=== PATIENT | female | born 1970 | race Caucasian/White ===

== ENCOUNTER → 2017-09-12 | Outpatient (CLI) | payer BC ==
--- NOTE | 2017-09-12 11:16 | XR ---
EXAMINATION TYPE: XR shoulder complete RT DATE OF EXAM: 09/12/2017 COMPARISON: NONE HISTORY: Pain TECHNIQUE: Three views are submitted. FINDINGS: The osseous structures are intact. There is no acute fracture or dislocation. There is arthropathy o f the AC joint.. IMPRESSION: 1. No acute process.
== END | disposition home or self-care (01) ==
LOC: RADXRYALE 10:31
PROVIDERS: ATTEND Internal Medicine
DX: M25.511 Pain in right shoulder (principal)

== ENCOUNTER → 2022-09-28 | Outpatient (CLI) | payer OTHER ==
[2022-09-28 16:13] LABS: ALT 25 U/L (8-44); AST 21 U/L (13-35); Albumin 4.3 d/dL (3.8-4.9); Albumin/Globulin Ratio 1.87 Ratio (1.60-3.17); Alkaline Phosphatase 60 U/L (41-126); Blood Urea Nitrogen 11.2 mg/dL (9.0-27.0); Calcium 9.1 mg/dL (8.7-10.3); Carbon Dioxide 25.4 mmol/L (21.6-31.8); Chloride 103 mmol/L (96-109); Chol/HDL Ratio 3.34 Ratio; Globulin 2.3 d/dL (1.6-3.3); Glucose 165 mg/dL (70-110); LDL Cholesterol,Calculated 69.2 mg/dL (0.0-131.0); Potassium 4.4 mmol/L (3.5-5.5); Sodium 141 mmol/L (135-145); Total Bilirubin 0.3 mg/dL (0.3-1.2); Total Protein 6.6 d/dL (6.2-8.2)
[2022-09-28 17:38] LABS: Microalbumin Creatinine Ratio <11 mg/g Cr (0-30)
== END | disposition home or self-care (01) ==
LOC: LABWHC1 09:19
PROVIDERS: ATTEND Internal Medicine Endocrinology, Diabetes & Metabolism
DX: E11.65 Type 2 diabetes mellitus with hyperglycemia (principal)
CPT/HCPCS: 36415; 80053; 80061; 82043; 82570; 83036; 84443

== ENCOUNTER → 2023-01-04 | Outpatient (CLI) | payer OTHER ==
[2023-01-04 16:34] LABS: ALT 31 U/L (8-44); AST 22 U/L (13-35); Albumin 4.7 d/dL (3.8-4.9); Albumin/Globulin Ratio 1.88 Ratio (1.60-3.17); Alkaline Phosphatase 63 U/L (41-126); BUN/Creat Ratio 18.12 Ratio (12.00-20.00); Blood Urea Nitrogen 14.5 mg/dL (9.0-27.0); Calcium 9.9 mg/dL (8.7-10.3); Carbon Dioxide 26.1 mmol/L (21.6-31.8); Chloride 100 mmol/L (96-109); Chol/HDL Ratio 2.89 Ratio; Globulin 2.5 d/dL (1.6-3.3); Glucose 125 mg/dL (70-110); LDL Cholesterol,Calculated 64.2 mg/dL (0.0-131.0); Potassium 4.6 mmol/L (3.5-5.5); Sodium 138 mmol/L (135-145); Total Bilirubin 0.4 mg/dL (0.3-1.2); Total Protein 7.2 d/dL (6.2-8.2)
[2023-01-04 19:04] LABS: Microalbumin Creatinine Ratio <8 mg/g Cr (0-30)
== END | disposition home or self-care (01) ==
LOC: LABWHC1 10:06
PROVIDERS: ATTEND Internal Medicine Endocrinology, Diabetes & Metabolism
DX: E11.65 Type 2 diabetes mellitus with hyperglycemia (principal)
CPT/HCPCS: 36415; 80053; 80061; 82043; 82570; 83036; 84443

== ENCOUNTER → 2023-04-03 | Outpatient (CLI) | payer OTHER ==
[2023-04-03 15:39] LABS: ALT 51 U/L (8-44); AST 24 U/L (13-35); Albumin 4.1 g/dL (3.8-4.9); Albumin/Globulin Ratio 1.58 Ratio (1.60-3.17); Alkaline Phosphatase 87 U/L (41-126); Blood Urea Nitrogen 14.8 mg/dL (9.0-27.0); Calcium 9.6 mg/dL (8.7-10.3); Carbon Dioxide 26.3 mmol/L (21.6-31.8); Chloride 100 mmol/L (96-109); Chol/HDL Ratio 2.49 Ratio; Globulin 2.6 g/dL (1.6-3.3); Glucose 108 mg/dL (70-110); LDL Cholesterol,Calculated 49.8 mg/dL (0.0-131.0); Potassium 4.6 mmol/L (3.5-5.5); Sodium 138 mmol/L (135-145); Total Bilirubin 0.4 mg/dL (0.3-1.2); Total Protein 6.7 g/dL (6.2-8.2)
== END | disposition home or self-care (01) ==
LOC: LABWHC1 09:27
PROVIDERS: ATTEND Internal Medicine Endocrinology, Diabetes & Metabolism
DX: E11.65 Type 2 diabetes mellitus with hyperglycemia (principal)
CPT/HCPCS: 36415; 80053; 80061; 82043; 82570; 83036; 84443

== ENCOUNTER → 2023-04-12 | Outpatient (CLI) | payer OTHER ==
--- NOTE | 2023-04-12 11:46 | MR ---
EXAMINATION TYPE: MR lumbar spine wo con DATE OF EXAM: 04/12/2023 COMPARISON: NONE HISTORY: Low back pain into left leg TECHNIQUE: T1 and T2 axial and sagittal images of the lumbar spine are submitted. FINDINGS: There is no abnormal signal seen within the visualized spinal cord or paraspinal soft tissu es. Multiple vertebral body hemangioma including L1, T12, T10. There is nodularity left adrenal gland which is most likely is normal. Measures 1.4 cm. At T12/L1 there is a mild degenerative disc. Large vertebral body hemangioma. Minimal central disc bu lging but no focal herniation, canal stenosis, or foraminal impingement. Mild degenerative disc disea se. At L1-2 there is mild degenerative disc disease with no disc herniation or stenosis. No foraminal man agement. Mild hypertrophic changes of the facets. At L2-3 there is moderate facet arthropathy but no disc herniation, canal stenosis, or foraminal encr oachment At L3-4 there is a broad-based central disc bulging with mild effacement of thecal sac. Facet arthrop athy. Mild bilateral foraminal encroachment. There is an annular tear. At L4-5 there is a grade 1 anterolisthesis with degenerative changes of the spine. There is advanced facet arthropathy. Moderate bilateral foraminal encroachment. Hypertrophy of the ligamentum flavum wi th borderline to mild central stenosis. At L5-S1 there is no disc herniation or canal stenosis. No degenerative disc disease. There is advanc ed facet arthropathy. Neural foramina remain patent. IMPRESSION: 1. At L4-5 there is a grade 1 anterolisthesis with degenerative changes of the spine. There is advanc ed facet arthropathy. Moderate bilateral foraminal encroachment. Hypertrophy of the ligamentum flavum with borderline to mild central stenosis. 2. Broad-based disc bulging L3-L4 with annular tear and facet arthropathy facet arthropathy
== END | disposition home or self-care (01) ==
LOC: RADMRIMAIN 10:21
PROVIDERS: ATTEND Physical Medicine & Rehabilitation
DX: M48.061 Spinal stenosis, lumbar region without neurogenic claudication (principal); M24.28 Disorder of ligament, vertebrae; M43.17 Spondylolisthesis, lumbosacral region; M47.27 Other spondylosis with radiculopathy, lumbosacral region; M51.17 Intervertebral disc disorders with radiculopathy, lumbosacral region; M41.26 Other idiopathic scoliosis, lumbar region; M16.0 Bilateral primary osteoarthritis of hip
CPT/HCPCS: 72148

== ENCOUNTER → 2023-10-06 | Outpatient (CLI) | payer OTHER ==
[2023-10-06 15:35] LABS: ALT 23 U/L (8-44); AST 17 U/L (13-35); Albumin 4.3 g/dL (3.8-4.9); Albumin/Globulin Ratio 1.87 Ratio (1.60-3.17); Alkaline Phosphatase 62 U/L (41-126); BUN/Creat Ratio 15.75 Ratio (12.00-20.00); Blood Urea Nitrogen 12.6 mg/dL (9.0-27.0); Calcium 9.1 mg/dL (8.7-10.3); Carbon Dioxide 26.4 mmol/L (21.6-31.8); Chloride 99 mmol/L (96-109); Chol/HDL Ratio 2.29 Ratio; Globulin 2.3 g/dL (1.6-3.3); Glucose 155 mg/dL (70-110); LDL Cholesterol,Calculated 64.5 mg/dL (0.0-131.0); Potassium 4.4 mmol/L (3.5-5.5); Sodium 138 mmol/L (135-145); Total Bilirubin 0.4 mg/dL (0.3-1.2); Total Protein 6.6 g/dL (6.2-8.2)
== END | disposition home or self-care (01) ==
LOC: LABWHC1 09:52
PROVIDERS: ATTEND Internal Medicine Endocrinology, Diabetes & Metabolism
DX: E11.65 Type 2 diabetes mellitus with hyperglycemia (principal)
CPT/HCPCS: 36415; 80053; 80061; 82043; 82570; 83036; 84443

== ENCOUNTER → 2023-12-18 | Outpatient (CLI) | payer OTHER | END | disposition home or self-care (01) | LOC: LABWHC1 09:20 | PROVIDERS: ATTEND Orthopaedic Surgery | DX: M25.561 Pain in right knee (principal); M17.11 Unilateral primary osteoarthritis, right knee; M16.12 Unilateral primary osteoarthritis, left hip; M70.62 Trochanteric bursitis, left hip | CPT/HCPCS: 36415; 83036 ==

== ENCOUNTER → 2023-12-27 | Outpatient (CLI) | payer OTHER ==
--- NOTE | 2023-12-27 12:54 | CT ---
INDICATION: Patient age:Female; 53 years old; Reason for study: [facility] Protocol for right knee replacement, M25.561 PAIN IN RIGHT KNEE; PHH. COMPARISON: None TECHNIQUE: Thin section axial CT imaging of the entire right lower extremity was performed per [facility] protocol, wi thout the administration of IV contrast. Additional axial images of the bilateral hips and ankles wit h other knee were also obtained. FINDINGS: There is no evidence of acute fracture or dislocation. The hips are grossly unremarkable. Some spurring along the bilateral greater trochanters. There is tricompartmental joint space narrowing with marginal spurring of the right knee. Peripherall y calcified loose body measuring up to 1 cm identified at midline anterior to the tibial intercondyla r area. Prominent venous vasculature within the subcutaneous tissues of the right knee. The ankle is grossly unremarkable. Postsurgical changes of the right ankle with screws identified wit hin the distal right tibia. Mild degenerative change of the posterior right tibiotalar joint. The visualized soft tissues appear grossly unremarkable within the limits of unenhanced CT. Post surg ical changes from lower anterior abdominal wall hernia repair with mesh anchors identified. Uterus is surgically absent. IMPRESSION: [facility] protocol for right knee joint replacement. Advanced tricompartmental osteoarthritic changes of t he right knee with 1 cm loose body anterior midline to the tibial intercondylar area. [facility], , 12/27/2023 12:06 PM
== END | disposition home or self-care (01) ==
LOC: RADCTMAIN 10:58
PROVIDERS: ATTEND Orthopaedic Surgery
DX: M25.561 Pain in right knee

== ENCOUNTER → 2024-01-09 | Outpatient (CLI) | payer OTHER ==
[2024-01-09 23:52] LABS: Chol/HDL Ratio 2.39 Ratio; Glucose 137 mg/dL (70-110); LDL Cholesterol,Calculated 78.5 mg/dL (0.0-131.0)
[2024-01-09 23:53] LABS: ALT 21 U/L (8-44); AST 19 U/L (13-35); Albumin 4.3 g/dL (3.8-4.9); Albumin/Globulin Ratio 1.65 Ratio (1.60-3.17); Alkaline Phosphatase 67 U/L (41-126); Calcium 8.8 mg/dL (8.7-10.3); Carbon Dioxide 21.7 mmol/L (21.6-31.8); Chloride 99 mmol/L (96-109); Globulin 2.6 g/dL (1.6-3.3); Potassium 4.4 mmol/L (3.5-5.5); Sodium 135 mmol/L (135-145); Total Bilirubin 0.4 mg/dL (0.3-1.2); Total Protein 6.9 g/dL (6.2-8.2)
== END | disposition home or self-care (01) ==
LOC: LABWHC1 12:51
PROVIDERS: ATTEND Internal Medicine Endocrinology, Diabetes & Metabolism
DX: E11.65 Type 2 diabetes mellitus with hyperglycemia (principal)
CPT/HCPCS: 36415; 80053; 80061; 82043; 82570; 83036; 84443

== ENCOUNTER 2024-01-30 07:11 | Day surgery (SDC) | payer OTHER ==
[~2024-01-30 07:11] MED LIST: LIDOCAINE 1% (10MG/ML) FOR IV START INTRADERMA PRN; ONDANSETRON 4 MG/2 ML VIAL IVP PRN
[2024-01-30] MEDS: IV FLUID CONTINUATION 1,000 ML IV ONE (07:41)
[2024-01-30 07:43] VITALS: TEMP 98.1
[2024-01-30] MEDS: LACTATED RINGERS 1,000 ML IV SCH (07:52)
[2024-01-30 08:02] LABS: Glucose,Whole Blood 161 mg/dL (70-110)
[2024-01-30] MEDS ORDERED: PROPOFOL 10 MG/ML 20 ML VIAL IV ONE (08:09)
[2024-01-30] MEDS ORDERED: LIDOCAINE 1% INJ 10MG/ML (20 ML MDV) ONE (08:09)
--- NOTE | 2024-01-30 08:13 | P.GSHP ---
History of Present Illness H&P Date: 01/30/24 Chief Complaint: Colon cancer screening 53-year-old female here for colonoscopy. Last colonoscopy 5 to 10 years ago. She believes that was normal. No bowel complaints. No family history of colon cancer. Past Medical History Past Medical History: Asthma, Diabetes Mellitus, Hyperlipidemia, Hypertension, Osteoarthritis (OA), Sleep Apnea/CPAP/BIPAP Additional Past Medical History / Comment(s): precancerous sites to bilateral breasts. sees raven. losartan protective. does not wear a cpap. varicose veins. History of Any Multi-Drug Resistant Organisms: None Reported Past Surgical History: Appendectomy, Hysterectomy, Tonsillectomy Additional Past Surgical History / Comment(s): screws in ankle. CTR maverick."paola jar sized tumor" removed from her head "tar" (?sinus) Past Anesthesia/Blood Transfusion Reactions: Postoperative Nausea & Vomiting (PONV) Additional Past Anesthesia/Blood Transfusion Reaction / Comment(s): slow to wake up with a surgery. "quit breathing" her mom was in recovery telling her to breathe (?sleep apnea). CTR woke up during surgery. Smoking Status: Former smoker, Heavy tobacco smoker - Past Family History Mother Family Medical History: Cancer, Deep Vein Thrombosis (DVT) Additional Family Medical History / Comment(s): liver cancer Sister(s) Family Medical History: Cancer Additional Family Medical History / Comment(s): Breast/Bone Medications and Allergies Home Medications Medication Instructions Recorded Confirmed Type Albuterol Sulfate [Albuterol 1 puff INHALATION DIRECTED PRN 01/25/24 01/30/24 History Sulfate Hfa] Atorvastatin [Lipitor] 20 mg PO DAILY 01/25/24 01/30/24 History Budesonide/Formoterol Fumarate 2 puff INHALATION DIRECTED 01/25/24 01/30/24 History [Budesonide-Formoterol 80-4.5] Citalopram Hydrobromide 20 mg PO DAILY 01/25/24 01/30/24 History [Citalopram HBr] Cyclobenzaprine [Flexeril] 10 mg PO HS PRN 01/25/24 01/30/24 History Glimepiride 1 mg PO DAILY 01/25/24 01/30/24 History Ibuprofen [Motrin] 800 mg PO DIRECTED PRN 01/25/24 01/30/24 History Losartan [Cozaar] 25 mg PO DAILY 01/25/24 01/30/24 History Meloxicam 7.5 mg PO DAILY 01/25/24 01/30/24 History Unk Iron Otc 1 tab PO DAILY 01/25/24 01/30/24 History Unk Ozempic Samples 2 mg INJ WEEKLY 01/25/24 01/30/24 History sitaGLIPtin [Januvia] 100 mg PO DAILY 01/25/24 01/30/24 History traMADol HCL 50 mg PO DIRECTED PRN 01/25/24 01/30/24 History Allergies Allergy/AdvReac Type Severity Reaction Status Date / Time ciprofloxacin [From Cipro] Allergy Rash/Hives Verified 01/30/24 07:37 Sulfa (Sulfonamide Allergy Anaphylaxis Verified 01/30/24 07:37 Antibiotics) poinsettia Allergy bladder Uncoded 01/30/24 07:37 and kidney infection Surgical - Exam Vital Signs Temp Pulse Resp BP Pulse Ox 98.1 F 76 18 116/64 95 01/30/24 07:37 01/30/24 07:37 01/30/24 07:37 01/30/24 07:37 01/30/24 07:37 Physical exam: General: Well-developed, well-nourished HEENT: Normocephalic, sclerae nonicteric Abdomen: Nontender, nondistended Extremities: No edema Neuro: Alert and oriented Results - Labs Abnormal Lab Results - Last 24 Hours (Table) 01/30/24 Range/Units 07:48 POC Glucose (mg/dL) 161 H (70-110) mg/dL Assessment and Plan (1) Colon cancer screening Narrative/Plan: Will proceed with colonoscopy at this time. Current Visit: Yes Status: Acute Code(s): Z12.11 - ENCOUNTER FOR SCREENING FOR MALIGNANT NEOPLASM OF COLON SNOMED Code(s): 413271026
--- NOTE | 2024-01-30 08:24 | P.PCN ---
Date of Procedure: 01/30/24 Procedure(s) Performed: PREOPERATIVE DIAGNOSIS: Colon cancer screening POSTOPERATIVE DIAGNOSIS: Small rectal polyp PROCEDURE: Colonoscopy with snare polypectomy ANESTHESIA: MAC SURGEON: Missael Gandhi M.D. SPECIMENS: rectal polyp ENDOSCOPIC PROCEDURE: The patient was placed on the endoscopy table in the left decubitus position. The Olympus colonoscope was inserted into the anus and passed under direct visualization to the base of the cecum. The appendiceal orifice was visualized. From that point the scope was slowly withdrawn inspecting all surfaces carefully. There were no neoplastic inflammatory or polypoid lesions throughout the cecum, ascending, transverse, descending, and sigmoid colon. In the rectum a small polyp was seen and removed using the snare with cautery technique. There was no visible diverticulosis. Digital rectal examination was normal. The patient was taken to the recovery room in stable condition per anesthesia guidelines. RECOMMENDATIONS: Await biopsy results. Will contact patient with the timing of the next colonoscopy.
[2024-01-30 08:49] VITALS: PULSE 69
[2024-01-30 09:17] VITALS: BP 113/68; RESP 18
== END 2024-01-30 09:21 | disposition home or self-care (01) ==
LOC: ORWHC2ENDO 07:11
PROVIDERS: ATTEND Surgery
DX: Z12.11 Encounter for screening for malignant neoplasm of colon (principal); K62.1 Rectal polyp; J45.909 Unspecified asthma, uncomplicated; E11.9 Type 2 diabetes mellitus without complications; M19.90 Unspecified osteoarthritis, unspecified site; E78.5 Hyperlipidemia, unspecified; I10 Essential (primary) hypertension; G47.33 Obstructive sleep apnea (adult) (pediatric); Z90.49 Acquired absence of other specified parts of digestive tract; Z90.710 Acquired absence of both cervix and uterus; Z87.891 Personal history of nicotine dependence; Z80.0 Family history of malignant neoplasm of digestive organs; Z79.1 Long term (current) use of non-steroidal anti-inflammatories (NSAID); Z79.84 Long term (current) use of oral hypoglycemic drugs; Z79.02 Long term (current) use of antithrombotics/antiplatelets; Z88.1 Allergy status to other antibiotic agents; Z88.2 Allergy status to sulfonamides
CPT/HCPCS: 45385; 88305

== ENCOUNTER → 2024-02-19 | Outpatient (CLI) | payer OTHER ==
--- NOTE | 2024-02-19 08:50 | CT ---
EXAMINATION TYPE: CT right knee - [facility] Protocol DATE OF EXAM: 02/19/2024 COMPARISON: NONE CLINICAL INDICATION: Female, 53 years old with history of M25.561 pain R knee; right knee pain TECHNIQUE: CT of the right knee performed according to [facility] protocol. CT DLP: 878 mGycm COMPARISON- 12/27/2023 FINDINGS: There is no evidence of acute fracture or dislocation. Moderate hypertrophic bilateral hip arthropathy correlate for femoral acetabular impingement. Sclerotic density in the left pubic ramus l ikely bone island but too small to characterize.. Some spurring along the bilateral greater trochante rs. There is tricompartmental joint space narrowing with marginal spurring of the right knee. Peripherall y calcified loose body measuring up to 1 cm identified at midline anterior to the tibial intercondyla r area. Prominent venous vasculature within the subcutaneous tissues of the right knee. This trace am ount of fluid in the suprapatellar bursa. There is a 1 cm soft tissue nodule in popliteal posterior s oft tissues which may represent a small popliteal fossa cyst or lymph node. Subcutaneous varices note d. Postsurgical changes of the right ankle with screws identified within the distal right tibia. Mild de generative change of the posterior right tibiotalar joint. The visualized soft tissues appear grossly unremarkable within the limits of unenhanced CT. Post surgical changes from lower anterior abdominal wall hernia repair with mesh anchors identified. Uterus is surgically absent. IMPRESSION: [facility] protocol for right knee joint replacement. Severe osteoarthritis medial compartment of the right knee with 1 cm loose body anterior midline to the tibial intercondylar area. [facility], , 02/19/2024 8:47 AM
== END | disposition home or self-care (01) ==
LOC: RADCTMAIN 07:34
PROVIDERS: ATTEND Orthopaedic Surgery
DX: M17.12 Unilateral primary osteoarthritis, left knee (principal); Z96.651 Presence of right artificial knee joint; M23.42 Loose body in knee, left knee

== ENCOUNTER → 2024-04-04 | Outpatient (CLI) | payer OTHER ==
[2024-04-04 16:18] LABS: Prothrombin Time 11.1 sec (10.0-12.5)
[2024-04-04 19:32] LABS: HCT 39.9 % (37.2-46.3); HGB 12.2 g/dL (12.0-15.0); MCH 25.5 pg (27.0-32.0); MCHC 30.6 g/dL (32.0-37.0); MCV 83.3 FL (80.0-97.0); Mean Platelet Volume 12.2 FL (9.5-12.2); NRBC Per 100 WBC 0 X 10*3/uL (0.00-0.01); Platelet Count 321 X 10*3/uL (140-440); RBC 4.79 X 10*6/uL (4.10-5.20); RDW 14.6 % (11.5-14.5)
[2024-04-05 04:21] LABS: Glucose 113 mg/dL (70-110)
[2024-04-05 04:22] LABS: ALT 17 U/L (8-44); AST 17 U/L (13-35); Albumin 4.2 g/dL (3.8-4.9); Albumin/Globulin Ratio 1.68 Ratio (1.60-3.17); Alkaline Phosphatase 67 U/L (41-126); Calcium 8.9 mg/dL (8.7-10.3); Carbon Dioxide 24.5 mmol/L (21.6-31.8); Chloride 100 mmol/L (96-109); Globulin 2.5 g/dL (1.6-3.3); Potassium 3.9 mmol/L (3.5-5.5); Sodium 136 mmol/L (135-145); Total Bilirubin 0.3 mg/dL (0.3-1.2); Total Protein 6.7 g/dL (6.2-8.2)
== END | disposition home or self-care (01) ==
LOC: LABPAT 15:14
PROVIDERS: ATTEND Orthopaedic Surgery
DX: Z01.812 Encounter for preprocedural laboratory examination (principal); M17.11 Unilateral primary osteoarthritis, right knee; E11.9 Type 2 diabetes mellitus without complications; Z22.322 Carrier or suspected carrier of Methicillin resistant Staphylococcus aureus
CPT/HCPCS: 80053; 83036; 85027; 85610; 85730; 87070

== ENCOUNTER 2024-04-24 13:31 | Day surgery (SDC) | payer OTHER ==
[~2024-04-24 13:31] MED LIST changes: +TRANEXAMIC 1,000 MG/100ML-NACL 1,000 MG in SALINE 1 100ML.BAG IV PRN; +TRANEXAMIC 1,000 MG/100ML-NACL 1,000 MG in SALINE 1 100ML.BAG IVPB PRN
[2024-04-24] MEDS: IV FLUID CONTINUATION 1,000 ML IV ONE ×2 (13:40→16:17)
[2024-04-24 14:11] LABS: Glucose,Whole Blood 108 mg/dL (70-110)
[2024-04-24] MEDS: LACTATED RINGERS 1,000 ML IV SCH (14:21)
[2024-04-24] MEDS: DOCUSATE 100 MG CAP PO PRN (14:23)
[2024-04-24] MEDS: oxyCODONE ER 10 MG TAB.ER.12H PO PRN (14:23)
[2024-04-24] MEDS: ACETAMINOPHEN TAB 500 MG TAB PO PRN (14:23)
[2024-04-24] MEDS: KETOROLAC 15 MG/ML 1 ML VIAL IVP PRN (14:25)
[2024-04-24] MEDS: DEXAMETHASONE SOD PHOSPHATE 10 MG/ML 1 ML VIAL IV PRN (14:25)
[2024-04-24] MEDS: ONDANSETRON 4 MG/2 ML VIAL IVP ONE (14:25)
[2024-04-24] MEDS: FAMOTIDINE 20 MG/2 ML VIAL IVP PRN (14:26)
[2024-04-24] MEDS: MIDAZOLAM 2 MG/2 ML VIAL IV PRN (14:56)
[2024-04-24] MEDS: fentaNYL (PF) 50 MCG/ML 2 ML AMP IV PRN (14:57)
[2024-04-24] MEDS: SCOPOLAMINE 1 MG/72 HR PATCH TRANSDERM STA (15:09)
[2024-04-24] MEDS ORDERED: WATER FOR INJECTION, STERILE 10 ML VIAL IV ONE (15:28)
[2024-04-24] MEDS ORDERED: ROCURONIUM 10 MG/ML (5 ML VIAL) IV ONE (15:28)
[2024-04-24] MEDS ORDERED: PROPOFOL 10 MG/ML 20 ML VIAL IV ONE (15:28)
[2024-04-24] MEDS ORDERED: SUCCINYLCHOLINE CHLORIDE 200 MG/10 ML VIAL IV ONE (15:28)
[2024-04-24] MEDS ORDERED: LIDOCAINE 1% INJ 10MG/ML (20 ML MDV) ONE (15:28)
[2024-04-24] MEDS ORDERED: ePHEDrine 50 MG/ML 1 ML VIAL ONE (15:28)
[2024-04-24] MEDS ORDERED: NEOSTIGMINE 1 MG/ML 10 ML VIAL ONE (15:28)
[2024-04-24] MEDS ORDERED: SODIUM CHLORIDE 0.9% (PF) 10 ML VIAL ONE (15:28)
[2024-04-24] MEDS ORDERED: DEXAMETHASONE SOD PHOSPHATE 4 MG/ML 1 ML VIAL ONE (15:28)
[2024-04-24] MEDS ORDERED: TRANEXAMIC 1,000 MG/100ML-NACL PREMIX BAG ONE (15:28)
[2024-04-24] MEDS ORDERED: PHENYLEPHRINE 10 MG/ML VIAL ONE (15:28)
[2024-04-24] MEDS ORDERED: fentaNYL (PF) 50 MCG/ML 2 ML AMP ONE (15:28)
[2024-04-24] MEDS ORDERED: GLYCOPYRROLATE 0.2 MG/ML 2 ML VIAL ONE (15:28)
[2024-04-24] MEDS ORDERED: ROPIVACAINE 5 MG/ML 30 ML VIAL ONE (15:28)
[2024-04-24] MEDS ORDERED: MIDAZOLAM 2 MG/2 ML VIAL ONE (15:28)
--- NOTE | 2024-04-24 15:43 | P.ANPRN ---
Procedure Note - Anesthesia - Nerve Block Performed Right Adductor Canal Single Time Out Performed: Yes Date of Procedure: 04/24/24 Procedure Start Time: 14:55 Procedure Stop Time: 15:02 Location of Patient: PreOp Indication: Acute Post-Operative Pain, Requested by Surgeon Sedation Type: Sedate with meaningful contact maintained Preparation: Sterile Prep Position: Supine Needle Types: Pajunk Needle Gauge: 21 Ultrasound used to visualize needle placement: Yes Ultrasound used to observe medication spread: Yes Injectate: 0.5% Ropivacaine (see comment for volume) (20 mL +10 mL of normal saline +4 mg dexamethasone) Blood Aspirated: No Pain Paresthesia on Injection Noted: No Resistance on Injection: Normal Image Stored and Saved: Yes Events: Uneventful and Well Tolerated
--- NOTE | 2024-04-24 15:44 | P.ANPRN ---
Procedure Note - Anesthesia - Nerve Block Performed Right Shaneck Single Time Out Performed: Yes Date of Procedure: 04/24/24 Procedure Start Time: 15:03 Procedure Stop Time: 15:07 Location of Patient: PreOp Indication: Acute Post-Operative Pain, Requested by Surgeon Sedation Type: Sedate with meaningful contact maintained Preparation: Sterile Prep Position: Left Lateral Needle Types: Pajunk Needle Gauge: 21 Ultrasound used to visualize needle placement: Yes Ultrasound used to observe medication spread: Yes Injectate: 0.5% Ropivacaine (see comment for volume) (20 mL +10 mL of normal saline +4 mg dexamethasone) Blood Aspirated: No Pain Paresthesia on Injection Noted: No Image Stored and Saved: Yes Events: Uneventful and Well Tolerated
[2024-04-24] MEDS: ROPIVACAINE/EPI/CLONIDINE/KET 50 ML SYRINGE MISCELLANE PRN (16:01)
[2024-04-24] MEDS ORDERED: HYDROmorphone 0.5 MG/0.5 ML SYRINGE IVP PRN (17:23)
[2024-04-24] MEDS ORDERED: NA PHOS,M-B/NA PHOS,DI-BA 133 ML ENEMA RECTAL PRN (17:23)
[2024-04-24] MEDS ORDERED: bisacodyL 10 MG SUPP RECTAL PRN (17:23)
[2024-04-24] MEDS ORDERED: HYDROmorphone 1 MG/ML 1 ML SYRINGE IVP PRN (17:23)
[2024-04-24] MEDS ORDERED: ONDANSETRON 4 MG/2 ML VIAL IVP PRN (17:23)
[2024-04-24] MEDS ORDERED: NALOXONE 0.4 MG/ML 1 ML VIAL IV PRN (17:23)
[2024-04-24] MEDS ORDERED: MAGNESIUM HYDROXIDE 2,400 MG/30 ML CUP PO PRN (17:23)
--- NOTE | 2024-04-24 17:23 | P.OP ---
Date of Procedure: 04/24/24 Preoperative Diagnosis: 1. Severe right knee osteoarthritis 2. BMI 39 3. Diabetes type 2 Postoperative Diagnosis: Same Procedure(s) Performed: 1. Right total knee arthroplasty 2. Computer assisted musculoskeletal navigation using CT/MRI images Implants: 1. [employer] CR Femur Size #4 2. [place] [employer] Chambers Tibial Base Size #3 3. [place] [employer] CS poly Size #3, 9-mm 4. [employer] all poly patella, Size #29 Anesthesia: GENET, regional Surgeon: Julien Mendoza Magnetometer Operator #1: Blayne Reina Estimated Blood Loss (ml): 100 IV fluids (ml): 800 Pathology: none sent Condition: stable Disposition: PACU Indications for Procedure: I met with the patient preoperatively in the office setting and discussed treatment of their symptomatic knee arthritis. They failed a long course of nonsurgical treatment and elected to proceed with an elective total knee replacement. I discussed the potential risks and complications at length and gave them ample time to ask questions. Risks discussed included: risks from anesthesia, superficial site surgical infection, acute and/or chronic periprosthetic joint infection, delayed wound healing, drainage, wound necrosis, instability, stiffness, stiffness requiring manipulation and/or revision surgery, damage to local blood vessels or nerves, aseptic loosening of the implants, extensor mechanism issues including disruption, patellar maltracking, avascular necrosis etc., continued or worsened knee pain, generalized dissatisfaction with surgical outcome, need for revision surgery, an inability to regain preinjury level of function, DVT, PE, other medical complications, and possibly loss of life or limb. The patient voiced their understanding that while these are the most common complications other less common complications ar e possible. They provided both their verbal and written consent to go forward with surgery. Operative Findings: Severe tricompartmental osteoarthritis Description of Procedure: The patient was identified in preoperative holding and the correct operative extremity was verified and marked with a marker. I reviewed the consent form with the patient at length. All of their questions were answered. The patient was given a block by anesthesia. They were then brought back to the operating room. They were transferred onto the operating room table where a general anesthetic, preoperative antibiotics, and tranexamic acid were administered by anesthesia. A tourniquet was applied to the proximal aspect of the operative extremity. The contralateral extremity was padded under the heel and secured to the operating room table with a nonsterile blue towel and tape. The ipsilateral arm was carefully draped across the patient's chest and secured with a pillow and foam. A post was applied over the lateral aspect of the ipsilateral thigh and a bolster was placed under the ipsilateral foot. I verified that the operative extremity was stable and the knee was flexed to 90. The operative extremity was then placed in a leg hinojosa, nonsterile drapes were applied, and the extremity was prepped and draped sterilely in the standard sterile fashion. Prior to starting surgery timeout was performed identifying the correct patient, operative extremity, and procedure. The leg was then elevated, exsanguinated with an Esmarch bandage, and the tourniquet was inflated. An anterior midline incision was made sharply with a scalpel. Once I had dissected deep to the superficial fascial layer medial and lateral flaps were elevated. A medial parapatellar arthrotomy was created. Upon opening the knee joint there were diffuse arthritic changes in all 3 compartments. The anterior horn of the medial meniscus were sharply released and a medial release was performed around the posterior medial corner of the knee to facilitate retractor placement. The fat pad was excised with electrocautery. The patella was found to be severely arthritic and a provisional cut was made with a sagittal saw to facilitate mobilization of the extensor mechanism during the procedure. Remnants of the ACL and PCL were then excised from the notch. 4 mm pins were then placed within the incision in the medial distal femur and proximal tibia. Arrays were applied to the pins and I verified they were completely tightened. The knee was then registered with the DJZ robot and manipulations in implant position were made to balance the knee and opitmize implant position. Using the George robotic saw all cuts were made in accordance with our plan. After all bony fragments had been removed the cuts were verified with the planar probe. The tibia was then subluxed forward and sized. The knee was brought into flexion and a lamina knifeman was placed to allow removal of the meniscal remnants both medially and laterally as well as posterior osteophytes. Local anesthetic was then infiltrated around the joint capsule. Trial implants were then placed within the knee. Range of motion and collateral ligament tension was then evaluated. Adjustments in implant size and position were then made accordingly. Once the knee was felt to be appropriately balanced the George pins were removed. The patella was then recut, sized, and punched. A trial patellar button was then placed. With the trial components in place, the patella tracked midline. The femur was then drilled and the trial component removed. The trial tibial component was then appropriately rotated, pinned, and prepared for the keel. All trial components were then removed from the knee. The knee was thoroughly irrigated with pulsatile lavage. Cement was prepared via vacuum mixing in a bowl on the back table. I then hand pressurized cement into the femur and tibia and placed the implants beginning with the tibial base tray and poly liner, femoral component, and finally the patellar button. All extruded cement was removed including from the pin sites. Once the cement had hardened the knee was evaluated one final time with the final polyethylene liner in place. The knee had full extension and flexion and felt stable to varus and valgus stress throughout the arc of motion. The tourniquet was released and with the tourniquet down the patella tracked midline. All bleeders were controlled with electrocautery. The knee was then soaked for 3 minutes with a dilute Betadine s oak. The knee was thoroughly irrigated using 3 L of sterile saline and pulsatile lavage. A deep drain was placed. The extensor mechanism was then reapproximated using pop off Vicryl sutures followed by a running barbed suture. The knee was then closed in layers with a 0 strata fix for the deep fascial layer, 2-0 strata fix for the superficial subcutaneous layer and Monocryl and Steri-Strips for the skin. A sterile dressing and drain sponge were applied. I verified that all instrument, sponge, and sharp counts were correct. The patient was then transferred off the operating room table, extubated, and brought to recovery having tolerated the procedure well. Blayne Reina PA-C was required as a skilled statistical assistant due to the complexity of surgery for patient positioning, draping, exposure, retraction, closure of wound and application of dressing. PLAN: The patient can weight-bear as tolerated on the operative extremity. DVT prophylaxis with aspirin 81 mg twice a day based on preoperative risk stratification. Follow-up in the office in 2 weeks for wound check and x-rays of the knee including an AP and lateral.
[2024-04-24 17:49] LABS: Glucose,Whole Blood 179 mg/dL (70-110)
[2024-04-24] MEDS: HYDROmorphone 0.5 MG/0.5 ML SYRINGE IVP PRN (17:53)
--- NOTE | 2024-04-24 19:12 | XR ---
EXAMINATION TYPE: XR knee limited RT DATE OF EXAM: 04/24/2024 6:53 PM COMPARISON: None CLINICAL INDICATION: Female, 53 years old with history of Evaluation for Postop abnormality and align ment; PHH, pain TECHNIQUE: XR knee limited RT XX views submitted. FINDINGS: Status post total knee arthroplasty changes with hardware in appropriate alignment and in tact. No evidence of fracture. Subcutaneous lucencies and lucencies within the joint consistent with surgical changes. IMPRESSION: Status post total knee arthroplasty changes with hardware intact and appropriate alignment. No fractu res identified. [facility], , 04/24/2024 7:09 PM
[2024-04-24] MEDS: DEXAMETHASONE SOD PHOSPHATE 4 MG/ML 1 ML VIAL IV ONE (21:28)
[2024-04-24] MEDS: SODIUM CHLORIDE 0.9% 1,000 ML IV SCH (21:31)
[2024-04-24] MEDS: SENNOSIDES-DOCUSATE SODIUM 1 EACH TAB PO SCH (21:39)
[2024-04-24] MEDS: ASPIRIN 81 MG PO SCH (21:39)
[2024-04-24] MEDS: HYDROcodone/APAP 5-325MG 1 EACH TAB PO PRN (22:06)
[2024-04-25] MEDS: HYDROmorphone 0.5 MG/0.5 ML SYRINGE IVP PRN (00:20)
[2024-04-25 06:13] LABS: Glucose,Whole Blood 148 mg/dL (70-110)
[2024-04-25] MEDS: HYDROcodone/APAP 10-325MG 1 EACH TAB PO PRN (07:56)
[2024-04-25] MEDS: MULTIVITAMINS, THERA 1 EACH TAB PO SCH (07:56)
[2024-04-25 08:28] LABS: Basophils # (A) 0.02 X 10*3/uL (0.00-0.10); Basophils % (A) 0.1 %; Eosinophils # (A) 0 X 10*3/uL (0.04-0.35); Eosinophils % (A) 0 %; HCT 35.1 % (37.2-46.3); HGB 10.9 g/dL (12.0-15.0); Lymphocytes # (A) 1.04 X 10*3/uL (0.90-5.00); Lymphocytes % (A) 6.4 %; MCH 26.4 pg (27.0-32.0); MCHC 31.1 g/dL (32.0-37.0); Mean Platelet Volume 12.3 FL (9.5-12.2); Monocytes # (A) 0.67 X 10*3/uL (0.20-1.00); Monocytes % (A) 4.1 %; NRBC Per 100 WBC 0 X 10*3/uL (0.00-0.01); Neutrophils # (A) 14.54 X 10*3/uL (1.80-7.70); Neutrophils % (A) 88.8 %; Platelet Count 248 X 10*3/uL (140-440); RBC 4.13 X 10*6/uL (4.10-5.20); RDW 14.9 % (11.5-14.5); WBC 16.36 X 10*3/uL (4.50-10.00)
[2024-04-25 08:45] VITALS: BP 96/56; PULSE 75; RESP 15; TEMP 97.6
--- NOTE | 2024-04-25 08:54 | P.DS ---
Providers Attending physician: Julien Mendoza Consults: 04/24/24 17:23 Consult Physician Routine Consulting Provider: Dionisio Isidro Consult Reason/Comments: post op medical management, diabetes Do you want consulting provider notified?: Yes Primary care physician: Leesa Smith [facility] Course: This is a 3-year-old patient, with past medical history of severe right knee osteoarthritis, who failed nonsurgical conservative management. On 04/24/2024 the patient presented to the [facility] pre-op department for scheduled katt total knee arthroplasty with Dr. Mendoza. The patient tolerated the procedure well. The patient was transferred to the orthopedic floor. The patient had no acute events over night. The patient's pain has been well-controlled. Patient was examined at bedside. Patient is resting comfortably in bed. No apparent distress. They are awake, alert and able to answer questions. On inspection the surgical knee dressing is intact, there is no drainage or strikethrough. The skin surrounding the dressing is free of erythema. There is mild swelling in the operative thigh. Operative femoral nerve function is intact. The operative calf is soft to compression. The patient is able to actively plantarflex and dorsiflex their operative ankle and toes. Their operative foot appears well perfused with capillary refill under 2 seconds. Start form completed and placed in the patient's chart. Walker order placed in patient's chart. Patient worked with physical therapy and it was determined they could discharge home. Plan to discharge home today. Plan follow up in two weeks in our office. Please see med rec for a list of accurate medications. Assessment: Stop day #1 status post right total knee arthroplasty for severe right knee osteoarthritis Right knee pain Plan - Discharge Summary Discharge Rx Participant: Yes New Discharge Prescriptions: New Aspirin 81 mg PO BID #60 tab HYDROcodone/APAP 5-325MG [Rhodes 5] 1 - 2 each PO Q6HR PRN #56 tab PRN Reason: Pain Omeprazole 20 mg PO DAILY #30 tab Sennosides-Docusate Sodium [Senokot-S] 1 tab PO BID PRN #60 tablet PRN Reason: Constipation Diclofenac Sodium [Voltaren] 75 mg PO BID #60 tab Ondansetron [Zofran] 4 mg PO Q6HR PRN #30 tab PRN Reason: Nausea No Action Cyclobenzaprine [Flexeril] 10 mg PO HS PRN PRN Reason: Pain Albuterol Sulfate [Albuterol Sulfate Hfa] 1 puff INHALATION DIRECTED PRN PRN Reason: Shortness Of Breath Ibuprofen [Motrin] 800 mg PO DIRECTED PRN PRN Reason: Pain Atorvastatin [Lipitor] 20 mg PO DAILY Budesonide/Formoterol Fumarate [Budesonide-Formoterol 80-4.5] 2 puff INHALATION DAILY sitaGLIPtin [Januvia] 100 mg PO DAILY Glimepiride 1 mg PO DAILY Meloxicam 7.5 mg PO DAILY Insulin Glargine,Hum.rec.anlog [Aramisroby Susancandelaria] 26 units SQ DAILY Aspirin [Adult Low Dose Aspirin EC] 81 mg PO DAILY ALPRAZolam [Xanax] 0.25 mg PO DAILY PRN PRN Reason: Anxiety traMADol HCL 50 mg PO DAILY PRN PRN Reason: Pain Citalopram Hydrobromide [Citalopram HBr] 20 mg PO DAILY Losartan [Cozaar] 25 mg PO DAILY Unk Iron Otc 1 tab PO DAILY Discharge Medication List Albuterol Sulfate [Albuterol Sulfate Hfa] 1 puff INHALATION DIRECTED PRN 01/25/24 [History] Atorvastatin [Lipitor] 20 mg PO DAILY 01/25/24 [History] Budesonide/Formoterol Fumarate [Budesonide-Formoterol 80-4.5] 2 puff INHALATION DAILY 01/25/24 [History] Citalopram Hydrobromide [Citalopram HBr] 20 mg PO DAILY 01/25/24 [History] Cyclobenzaprine [Flexeril] 10 mg PO HS PRN 01/25/24 [History] Glimepiride 1 mg PO DAILY 01/25/24 [History] Ibuprofen [Motrin] 800 mg PO DIRECTED PRN 01/25/24 [History] Losartan [Cozaar] 25 mg PO DAILY 01/25/24 [History] Meloxicam 7.5 mg PO DAILY 01/25/24 [History] Unk Iron Otc 1 tab PO DAILY 01/25/24 [History] sitaGLIPtin [Januvia] 100 mg PO DAILY 01/25/24 [History] traMADol HCL 50 mg PO DAILY PRN 01/25/24 [History] ALPRAZolam [Xanax] 0.25 mg PO DAILY PRN 04/19/24 [History] Aspirin [Adult Low Dose Aspirin EC] 81 mg PO DAILY 04/19/24 [History] Insulin Glargine,Hum.rec.anlog [Touesther Solostar] 26 units SQ DAILY 04/19/24 [History] Aspirin 81 mg PO BID #60 tab 04/25/24 [Rx] Diclofenac Sodium [Voltaren] 75 mg PO BID #60 tab 04/25/24 [Rx] HYDROcodone/APAP 5-325MG [Rhodes 5] 1 - 2 each PO Q6HR PRN #56 tab 04/25/24 [Rx] Omeprazole 20 mg PO DAILY #30 tab 04/25/24 [Rx] Ondansetron [Zofran] 4 mg PO Q6HR PRN #30 tab 04/25/24 [Rx] Sennosides-Docusate Sodium [Senokot-S] 1 tab PO BID PRN #60 tablet 04/25/24 [Rx] Follow up Appointment(s)/Referral(s): Julien Mendoza MD [Medical Doctor] - 2 Weeks Activity/Diet/Wound Care/Special Instructions: 1. Weight-bear as tolerated on your operative extremity unless instructed otherwise. Use a walker or other assistive device to ambulate. 2. Leave surgical dressing in place. If your dressing becomes saturated with blood, there is drainage, or the dressing becomes loose please contact the office. 3. It is okay to shower with your surgical dressing, but do not submerge in water (no hot tubs, bath's, swimming etc.) 4. Take your blood clot prevention medication as prescribed (aspirin, Eliquis, Xarelto, and Plavix are commonly prescribed medications for blood clot pr evention) 5. While taking Rhodes or Percocet for pain take a stool softener (Ex: Colace) and drink lots of water. 6. Keep all follow-up appointments as scheduled. You will usually be seen in 1-2 weeks following surgery. 7. Please contact the office with any questions or concerns [phone] Stop Motrin if taking diclofenac. Discharge Disposition: HOME WITH HOME HEALTH SERVICES
[2024-04-25] MEDS: hydrOXYzine pamoate 25 MG CAP PO PRN (10:27)
== END 2024-04-25 12:35 | disposition home health service (06) ==
LOC: OR 13:31 → 4SSUR 17:31 → OR 04-25 12:35
PROVIDERS: ATTEND Orthopaedic Surgery
DX: M17.11 Unilateral primary osteoarthritis, right knee (principal); E11.9 Type 2 diabetes mellitus without complications; G89.18 Other acute postprocedural pain; Z79.4 Long term (current) use of insulin; Z79.899 Other long term (current) drug therapy; Z68.39 Body mass index [BMI] 39.0-39.9, adult
CPT/HCPCS: 0055T; 27447; S2900; 64447; 64999; 85025

== ENCOUNTER → 2024-06-21 | Outpatient (CLI) | payer SELFPAY ==
[2024-06-21 11:22] LABS: Partial Thromboplastin Time 28.2 sec (22.0-30.0)
[2024-06-21 15:03] LABS: Basophils # (A) 0.12 X 10*3/uL (0.00-0.10); Basophils % (A) 0.9 %; Eosinophils # (A) 0.32 X 10*3/uL (0.04-0.35); Eosinophils % (A) 2.4 %; HCT 41.6 % (37.2-46.3); HGB 12.8 g/dL (12.0-15.0); Lymphocytes # (A) 2.49 X 10*3/uL (0.90-5.00); Lymphocytes % (A) 18.8 %; MCH 25.7 pg (27.0-32.0); MCHC 30.8 g/dL (32.0-37.0); MCV 83.5 FL (80.0-97.0); Mean Platelet Volume 12.6 FL (9.5-12.2); Monocytes # (A) 0.79 X 10*3/uL (0.20-1.00); NRBC Per 100 WBC 0 X 10*3/uL (0.00-0.01); Neutrophils # (A) 9.48 X 10*3/uL (1.80-7.70); Neutrophils % (A) 71.4 %; Platelet Count 304 X 10*3/uL (140-440); RBC 4.98 X 10*6/uL (4.10-5.20); RDW 14.9 % (11.5-14.5); WBC 13.27 X 10*3/uL (4.50-10.00)
[2024-06-21 15:33] LABS: ALT 19 U/L (8-44); AST 17 U/L (13-35); Albumin 4.4 g/dL (3.8-4.9); Albumin/Globulin Ratio 1.76 Ratio (1.60-3.17); Alkaline Phosphatase 68 U/L (41-126); Blood Urea Nitrogen 16.1 mg/dL (9.0-27.0); Calcium 9.5 mg/dL (8.7-10.3); Carbon Dioxide 25.5 mmol/L (21.6-31.8); Chloride 107 mmol/L (96-109); Globulin 2.5 g/dL (1.6-3.3); Glucose 138 mg/dL (70-110); Potassium 4.6 mmol/L (3.5-5.5); Sodium 145 mmol/L (135-145); Total Bilirubin 0.3 mg/dL (0.3-1.2); Total Protein 6.9 g/dL (6.2-8.2)
== END | disposition home or self-care (01) ==
LOC: LABPAT 10:27
PROVIDERS: ATTEND Orthopaedic Surgery
DX: Z01.812 Encounter for preprocedural laboratory examination (principal); Z22.322 Carrier or suspected carrier of Methicillin resistant Staphylococcus aureus; M17.12 Unilateral primary osteoarthritis, left knee; E11.9 Type 2 diabetes mellitus without complications
CPT/HCPCS: 80053; 83036; 85025; 85610; 85730; 87070; 93005

== ENCOUNTER → 2024-06-24 | Outpatient (CLI) | payer OTHER ==
--- NOTE | 2024-06-24 13:05 | CT ---
EXAMINATION TYPE: CT left knee - KATT Protocol DATE OF EXAM: 06/24/2024 12:55 PM COMPARISON: None. CLINICAL INDICATION: Female, 54 years old with history of M17.12 UNILATERAL PRIMARY OSTEOARTHRITIS, L EFT KNE; PHH, left knee katt protocol, pain, TECHNIQUE: Axial images were obtained of the bilateral hips, knee and bilateral ankles: CT left knee - KATT Protocol, Additional coronal and sagittal reformatted images and soft tissue and bone window were obtained for review of the bilateral hips, knee and bilateral ankles. Contrast used: mL of , (None if empty) Oral contrast used: (None if empty) CT DLP: 841 mGycm, Automated exposure control for dose reduction was used. FINDINGS: The visualized portion of the hips demonstrate mild osteoarthrosis changes with osteophyte formation of the acetabulum. No acute intrapelvic process. The bony structures of the pelvis are intact. The visualized knee demonstrates osteophyte formation of the tibial plateau, the patella and femoral condyles. There is joint space narrowing and subchondral sclerosis. No evidence of fracture. Small j oint effusion present. The visualized ankles demonstrates multifocal osteoarthrosis changes with osteophyte formation and mi ld joint space narrowing. No evidence of fractures. Fixation changes in the right distal tibia with s crews present and intact. Other: The uterus appears surgically absent. Postsurgical changes anterior abdominal IMPRESSION: Moderate osteoarthrosis changes of the knee. [facility], , 06/24/2024 1:03 PM
== END | disposition home or self-care (01) ==
LOC: RADCTMAIN 12:05
PROVIDERS: ATTEND Orthopaedic Surgery
DX: M17.12 Unilateral primary osteoarthritis, left knee (principal)

== ENCOUNTER 2024-07-12 08:25 | Day surgery (SDC) | payer OTHER ==
[2024-07-05 11:51] VITALS: BMI 38.4
[~2024-07-12 08:25] MED LIST changes: +DOCUSATE 100 MG CAP PO PRN; -LIDOCAINE 1% (10MG/ML) FOR IV START INTRADERMA PRN; -ONDANSETRON 4 MG/2 ML VIAL IVP PRN
[2024-07-12] MEDS: oxyCODONE ER 10 MG TAB.ER.12H PO PRN (09:39)
[2024-07-12] MEDS: LACTATED RINGERS 1,000 ML IV SCH (09:39)
[2024-07-12] MEDS: ACETAMINOPHEN TAB 500 MG TAB PO PRN (09:39)
[2024-07-12] MEDS: MIDAZOLAM 2 MG/2 ML VIAL IV PRN (09:42)
[2024-07-12] MEDS: fentaNYL (PF) 50 MCG/ML 2 ML AMP IVP ONE (09:42)
[2024-07-12] MEDS: DEXAMETHASONE SOD PHOSPHATE 10 MG/ML 1 ML VIAL IV PRN (09:51)
[2024-07-12] MEDS: ONDANSETRON 4 MG/2 ML VIAL IVP PRN (09:51)
[2024-07-12] MEDS: KETOROLAC 15 MG/ML 1 ML VIAL IVP PRN (09:51)
[2024-07-12] MEDS: FAMOTIDINE 20 MG/2 ML VIAL IVP PRN (09:52)
[2024-07-12 09:53] LABS: Glucose,Whole Blood 127 mg/dL (70-110)
[2024-07-12] MEDS: IV FLUID CONTINUATION 1,000 ML IV ONE ×2 (09:54→13:27)
[2024-07-12] MEDS: SCOPOLAMINE 1 MG/72 HR PATCH TRANSDERM STA (09:58)
[2024-07-12] MEDS ORDERED: DEXAMETHASONE SOD PHOSPHATE 4 MG/ML 1 ML VIAL ONE (10:18)
[2024-07-12] MEDS ORDERED: LIDOCAINE 1% INJ 10MG/ML (20 ML MDV) ONE (10:18)
[2024-07-12] MEDS ORDERED: ROCURONIUM 10 MG/ML (5 ML VIAL) IV ONE (10:18)
[2024-07-12] MEDS ORDERED: SODIUM CHLORIDE 0.9% (PF) 10 ML VIAL ONE (10:18)
[2024-07-12] MEDS ORDERED: PROPOFOL 10 MG/ML 20 ML VIAL IV ONE (10:18)
[2024-07-12] MEDS ORDERED: NEOSTIGMINE 1 MG/ML 10 ML VIAL ONE (10:18)
[2024-07-12] MEDS ORDERED: GLYCOPYRROLATE 0.2 MG/ML 2 ML VIAL ONE (10:18)
[2024-07-12] MEDS ORDERED: SUCCINYLCHOLINE CHLORIDE 200 MG/10 ML VIAL IV ONE (10:18)
[2024-07-12] MEDS ORDERED: ePHEDrine 50 MG/ML 1 ML VIAL ONE (10:18)
[2024-07-12] MEDS ORDERED: ROPIVACAINE 5 MG/ML 30 ML VIAL ONE (10:18)
[2024-07-12] MEDS ORDERED: TRANEXAMIC 1,000 MG/100ML-NACL PREMIX BAG ONE (10:18)
[2024-07-12] MEDS ORDERED: PHENYLEPHRINE-0.9% NACL SYG 1,000 MCG/10 ML SYRINGE ONE (10:18)
[2024-07-12] MEDS ORDERED: fentaNYL (PF) 50 MCG/ML 2 ML AMP ONE (10:18)
[2024-07-12] MEDS ORDERED: HYDROmorphone (PF) 1 MG/ML ONE (10:18)
[2024-07-12] MEDS ORDERED: WATER FOR INJECTION, STERILE 10 ML VIAL IV ONE (10:18)
[2024-07-12] MEDS: ceFAZolin 2 GM in DEXTROSE 5% IN WATER 50 ML IVPB PRN (10:23)
--- NOTE | 2024-07-12 10:42 | P.ANPRN ---
Procedure Note - Anesthesia - Nerve Block Performed Left Adductor Canal Single Time Out Performed: Yes (0941) Date of Procedure: 07/12/24 Procedure Start Time: :42 Procedure Stop Time: :45 Location of Patient: PreOp Indication: Acute Post-Operative Pain, Requested by Surgeon Specifically requested for management of pain by DrNess: Julien Mendoza Sedation Type: Sedate with meaningful contact maintained Preparation: Sterile Prep Position: Supine Catheter: None Needle Types: Pajunk Needle Gauge: 21 Ultrasound used to visualize needle placement: Yes Ultrasound used to observe medication spread: Yes Injectate: 0.5% Ropivacaine (see comment for volume) (15cc+10cc nacl pf +Decadron 4mg) Blood Aspirated: No Pain Paresthesia on Injection Noted: No Resistance on Injection: Normal Image Stored and Saved: Yes Events: Uneventful and Well Tolerated
--- NOTE | 2024-07-12 10:43 | P.ANPRN ---
Procedure Note - Anesthesia - Nerve Block Performed Left iPack Single Time Out Performed: Yes (0941) Date of Procedure: 07/12/24 Procedure Start Time: 09:46 Procedure Stop Time: 09:49 Location of Patient: PreOp Indication: Acute Post-Operative Pain, Requested by Surgeon Specifically requested for management of pain by DrNess: Julien Mendoza Sedation Type: Sedate with meaningful contact maintained Preparation: Sterile Prep Position: Supine Needle Gauge: 21 Ultrasound used to visualize needle placement: Yes Ultrasound used to observe medication spread: Yes Injectate: 0.5% Ropivacaine (see comment for volume) (15cc+10cc nacl pf +Decadron 4mg) Blood Aspirated: No Pain Paresthesia on Injection Noted: No Resistance on Injection: Normal Image Stored and Saved: Yes Events: Uneventful and Well Tolerated
[2024-07-12] MEDS: ROPIVACAINE/EPI/CLONIDINE/KET 50 ML SYRINGE MISCELLANE PRN (10:53)
[2024-07-12] MEDS: LACTATED RINGERS 1,000 ML IV ONE (11:12)
[2024-07-12] MEDS ORDERED: TEMAZEPAM 15 MG CAP PO PRN (12:06)
[2024-07-12] MEDS ORDERED: HYDROmorphone 0.5 MG/0.5 ML SYRINGE IVP PRN ×2 (12:06)
[2024-07-12] MEDS ORDERED: NALOXONE 0.4 MG/ML 1 ML VIAL IV PRN (12:06)
[2024-07-12] MEDS ORDERED: ONDANSETRON 4 MG/2 ML VIAL IVP PRN (12:06)
[2024-07-12] MEDS ORDERED: MAGNESIUM HYDROXIDE 2,400 MG/30 ML CUP PO PRN (12:06)
[2024-07-12] MEDS ORDERED: bisacodyL 10 MG SUPP RECTAL PRN (12:06)
[2024-07-12] MEDS ORDERED: NA PHOS,M-B/NA PHOS,DI-BA 133 ML ENEMA RECTAL PRN (12:06)
[2024-07-12] MEDS ORDERED: diazePAM 5 MG TAB PO PRN ×2 (12:06)
[2024-07-12] MEDS ORDERED: HYDROcodone/APAP 5-325MG 1 EACH TAB PO PRN (12:06)
--- NOTE | 2024-07-12 12:06 | P.OP ---
Date of Procedure: 07/12/24 Preoperative Diagnosis: 1. Severe left knee osteoarthritis 2. BMI 38.4 3. Previous right knee osteoarthritis status post total knee arthroplasty Postoperative Diagnosis: Same Procedure(s) Performed: 1. Left total knee arthroplasty 2. Computer assisted musculoskeletal navigation using CT/MRI images Implants: 1. [place] [employer] CR Femur Size #3 2. [place] [employer] Tibial Base Size #3 3. [employer] CS poly Size #3, 9-mm 4. [employer] Tri[employer]lon all poly patella, Size #29 Anesthesia: GETA, regional Surgeon: Julien Mendoza Welder/Fabricator #1: Blayne Reina Estimated Blood Loss (ml): 100 IV fluids (ml): 800 Pathology: none sent Condition: stable Disposition: PACU Indications for Procedure: The patient is a very pleasant 54-year-old female with a medical history significant for type 2 diabetes who previously underwent a right total knee replacement in March [id number]. She did well with this. She had incapacitating left knee pain. Her x-rays showed moderate joint space narrowing and an MRI showed full-thickness cartilage loss in the medial and patellofemoral joint spaces. Having previously undergone a total knee replacement on the contralateral side she requested proceeding with a left total knee replacement having failed over 6 months of nonsurgical treatment. I met with the patient preoperatively in the office setting and discussed treatment of their symptomatic knee arthritis. They failed a long course of nonsurgical treatment and elected to proceed with an elective total knee replacement. I discussed the potential risks and complications at length and gave them ample time to ask questions. Risks discussed included: risks from anesthesia, superficial site surgical infection, acute and/or chronic periprosthetic joint infection, delayed wound healing, drainage, wound necrosis, instability, stiffness, stiffness requiring manipulation and/or revision surgery, damage to local blood vessels or nerves, aseptic loosening of the implants, extensor mechanism issues including disruption, patellar maltracking, avascular necrosis etc., continued or worsened knee pain, generalized dissatisfaction with surgical outcome, need for revision surgery, an inability to regain preinjury level of function, DVT, PE, other medical complications, and possibly loss of life or limb. The patient voiced their understanding that while these are the most common complications other less common complications are possible. They provided both their verbal and written consent to go forward with surgery. Operative Findings: Severe full-thickness cartilage loss on the medial and patellofemoral compartments, partial thickness cartilage loss lateral compartment Description of Procedure: The patient was identified in preoperative holding and the correct operative extremity was verified and marked with a marker. I reviewed the consent form with the patient at length. All of their questions were answered. The patient was given a block by anesthesia. They were then brought back to the operating room. They were transferred onto the operating room table where a general anesthetic, preoperative antibiotics, and tranexamic acid were administered by anesthesia. A tourniquet was applied to the proximal aspect of the operative extremity. The contralateral extremity was padded under the heel and secured to the operating room table with a nonsterile blue towel and tape. The ipsilateral arm was carefully draped across the patient's chest and secured with a pillow and foam. A post was applied over the lateral aspect of the ipsilateral thigh and a bolster was placed under the ipsilateral foot. I verified that the operative extremity was stable and the knee was flexed to 90. The operative extremity was then placed in a leg hinojosa, nonsterile drapes were applied, and the extremity was prepped and draped sterilely in the standard sterile fashion. Prior to starting surgery timeout was performed identifying the correct patient, operative extremity, and procedure. The leg was then elevated, exsanguinated with an Esmarch bandage, and the tourniquet was inflated. An anterior midline incision was made sharply with a scalpel. Once I had dissected deep to the superficial fascial layer medial and lateral flaps were elevated. A medial parapatellar arthrotomy was created. Upon opening the knee joint there were diffuse arthritic changes in all 3 compartments. The anterior horn of the medial meniscus were sharply released and a medial release was performed around the posterior medial corner of the knee to facilitate retractor placement. The fat pad was excised with electrocautery. Remnants of the ACL and PCL were then excised from the notch. 4 mm pins were then placed within the incision in the medial distal femur and proximal tibia. Arrays were applied to the pins and I verified they were completely tightened. The knee was then registered with the [employer] robot and manipulations in implant position were made to balance the knee and opitmize implant position. Using the [employer] robotic saw all cuts were made in accordance with our plan. After all bony fragments had been removed the cuts were verified with the planar probe. The tibia was then subluxed forward and sized. The knee was brought into flexion and a lamina rail layer was placed to allow removal of the meniscal remnants both medially and laterally as well as posterior osteophytes. Local anesthetic was then infiltrated around the joint capsule. Trial implants were then placed within the knee. Range of motion and collateral ligament tension was then evaluated. Adjustments in implant size and position were then made accordingly. Once the knee was felt to be appropriately balanced the George pins were removed. The patella was then cut, sized, and punched. A trial patellar button was then placed. With the trial components in place, the patella tracked midline. The femur was then drilled and the trial component removed. The trial tibial component was then appropriately rotated, pinned, and prepared for the keel. All trial components were then removed from the knee. The knee was thoroughly irrigated with pulsatile lavage. Cement was prepared via vacuum mixing in a bowl on the back table. Once the cement had reached appropriate consistency, I hand pressurized cement into the tibia and gently impacted the tibial implant into place. Cement was carefully removed from around the tibial tray and the poly liner was tapped into placed, engaging the locking mechanism. The femur was then exposed and cement was hand pressurized into the cut surfaces. The femoral implant was gently tapped into place and cement was carefully removed. A wet lap sponge was used to wipe down the bearing surface of the femur and the knee was extended to further pressurize cement. With the knee extended, cement was pressurized into the cut surface of the patella and the patella button was placed and compressed with a clamp. All extruded cement was removed including from the pin sites. The knee was held in extension until the cement had fully hardened. Once the cement had hardened the knee was evaluated one final time with the final polyethylene liner in place. The knee had full extension and flexion and felt stable to varus and valgus stress throughout the arc of motion. The tourniquet was released and with the tourniquet down the patella tracked midline. All bleeders were controlled with electrocautery. The knee was then soaked for 3 minutes with a dilute Betadine soak. The knee was thoroughly irri gated using 3 L of sterile saline and pulsatile lavage. A deep drain was placed. The extensor mechanism was then reapproximated using pop off Vicryl sutures followed by a running barbed suture. The knee was then closed in layers with a 0 strata fix for the deep fascial layer, 2-0 strata fix for the superficial subcutaneous layer and Monocryl and Steri-Strips for the skin. A sterile dressing and drain sponge were applied. I verified that all instrument, sponge, and sharp counts were correct. The patient was then transferred off the operating room table, extubated, and brought to recovery having tolerated the procedure well. Blayne Reina PA-C was required as a skilled retail assistant manager due to the complexity of surgery for patient positioning, draping, exposure, retraction, closure of wound and application of dressing. PLAN: The patient can weight-bear as tolerated on the operative extremity. DVT prophylaxis with aspirin 81 mg twice a day based on preoperative risk stratification. Follow-up in the office in 2 weeks for wound check and x-rays of the knee including an AP and lateral.
[2024-07-12] MEDS: HYDROmorphone 0.5 MG/0.5 ML SYRINGE IVP PRN (13:02)
--- NOTE | 2024-07-12 13:06 | XR ---
EXAMINATION TYPE: XR knee limited LT DATE OF EXAM: 07/12/2024 12:54 PM COMPARISON: None CLINICAL INDICATION: Female, 54 years old with history of Evaluation for Postop abnormality and align ment; PHH, pain TECHNIQUE: 2 views FINDINGS: Placement of left total knee arthroplasty. Both distal femoral and proximal tibial components of the prosthesis are well seated without periprosthetic fracture. Alignment grossly anatomic. Anterior soft tissue swelling with soft tissue air as well as intra-articular air related to recent operation. IMPRESSION: Uncomplicated postoperative appearance left total knee arthroplasty. There may be some faint osseous debris within the suprapatellar pouch of the knee joint. [facility], Workstation: [facility], 07/12/2024 1:04 PM
[2024-07-12 13:40] LABS: Glucose,Whole Blood 215 mg/dL (70-110)
[2024-07-12] MEDS: INSULIN LISPRO (HumaLOG) 100 UNIT/ML 10 mL VL SQ ONE (13:58)
[2024-07-12] MEDS: SODIUM CHLORIDE 0.9% 1,000 ML IV SCH (14:44)
[2024-07-12] MEDS ORDERED: DEXTROSE 50% SYRINGE 50 ML IVP PRN ×2 (15:10)
[2024-07-12] MEDS ORDERED: ALBUTEROL NEBULIZED 2.5 MG/3 ML INHALATION PRN (15:10)
--- NOTE | 2024-07-12 15:12 | P.CONS ---
History of Present Illness - Reason for Consult Consult date: 07/12/24 Medical management - Chief Complaint Left knee arthroplasty - History of Present Illness Patient is a 54-year-old female with known history of diabetes type 2 insulin- dependent, hyperlipidemia, osteoarthritis, history of breast surgery, anxiety/depression and prior history of smoking was admitted to the hospital for 2 left knee arthroplasty. Patient is status post left total knee arthroplasty. Pain is controlled with epidural. No complaints of nausea or vomiting. No chest pain or shortness of breath. Patient has been afebrile. Blood sugar was 215 this morning. Blood pressure 99/63 pulse is 97 respiration 17 pulse ox 90% on room air. Laboratory data is not available at this time. Review of Systems Constitutional: Patient denies any fever or chills . No generalized weakness or weight loss. Abdomen: Patient denied nausea vomiting and diarrhea and abdominal pain. Cardiovascular: Patient denies any chest pain or short of breath no palpitations. Respiratory: patient denied any cough or sputum production. No shortness of breath Neurologic: Patient denied any numbness or tingling. no headache. Musculoskeletal: Patient denies any complaints of joint swelling or deformity. Skin: Negative Psychiatric: Negative Endocrine: No heat or cold intolerance. No recent weight gain. Genitourinary: No dysuria or hematuria. All other 14 point ROS negative except the above Past Medical History Past Medical History: Diabetes Mellitus, Hyperlipidemia, Osteoarthritis (OA) History of Any Multi-Drug Resistant Organisms: None Reported Past Surgical History: Appendectomy, Breast Surgery, Hernia Repair, Hysterectomy, Joint Replacement, Orthopedic Surgery, Tonsillectomy Additional Past Surgical History / Comment(s): ORIF RT ANKLE, RT TKA, COLONOSCOPY, BREAST LUMPECTOMY Past Anesthesia/Blood Transfusion Reactions: Postoperative Nausea & Vomiting (PONV) Past Psychological History: Anxiety, Depression Smoking Status: Former smoker Past Alcohol Use History: Rare Additional Past Alcohol Use History / Comment(s): QUIT SMOKING 30 YEAR [place] Past Drug Use History: None Reported - Past Family History Mother Family Medical History: Cancer, Deep Vein Thrombosis (DVT) Sister(s) Family Medical History: Cancer Medications and Allergies Home Medications Medication Instructions Recorded Confirmed Type Atorvastatin [Lipitor] 20 mg PO DAILY 01/25/24 07/12/24 History Budesonide/Formoterol Fumarate 2 puff INHALATION DAILY 01/25/24 07/12/24 History [Budesonide-Formoterol 80-4.5] Citalopram Hydrobromide 20 mg PO DAILY 01/25/24 07/12/24 History [Citalopram HBr] Glimepiride 1 mg PO DAILY 01/25/24 07/12/24 History Ibuprofen [Motrin] 800 mg PO DIRECTED PRN 01/25/24 07/12/24 History Meloxicam 7.5 mg PO DAILY 01/25/24 07/12/24 History sitaGLIPtin [Januvia] 100 mg PO DAILY 01/25/24 07/12/24 History traMADol HCL 50 mg PO DAILY PRN 01/25/24 07/12/24 History ALPRAZolam [Xanax] 0.25 mg PO DAILY PRN 04/19/24 07/12/24 History Aspirin [Adult Low Dose Aspirin EC] 81 mg PO DAILY 04/19/24 07/12/24 History Insulin Glargine,Hum.rec.anlog 27 units SQ DAILY 04/19/24 07/12/24 History [Elizabeth Gomez] Allergies Allergy/AdvReac Type Severity Reaction Status Date / Time ciprofloxacin [From Cipro] Allergy Rash/Hives Verified 07/12/24 09:02 Sulfa (Sulfonamide Allergy Anaphylaxis Verified 07/12/24 09:02 Antibiotics) poinsettia Allergy bladder Uncoded 07/12/24 09:02 and kidney infection Physical Exam Vitals: Vital Signs Temp Pulse Pulse Resp BP Pulse Ox 07/12/24 14:10 98.1 F 97 15 108/67 90 L 07/12/24 13:45 91 16 129/66 93 L 07/12/24 13:30 98 16 127/63 93 L 07/12/24 13:15 101 H 16 114/66 95 07/12/24 13:00 100 16 108/67 95 07/12/24 12:47 98 16 106/62 95 07/12/24 12:32 96.9 F L 99 16 140/65 98 07/12/24 09:57 68 16 108/54 98 07/12/24 09:05 95.5 F L 77 18 111/62 97 Intake and Output 07/12/24 07/12/24 07/12/24 06:59 14:59 22:59 Intake Total 2049 Output Total 100 Balance 1950 Intake: IV 2049 Output: Estimated Blood Loss 100 Other: Weight 108 kg PHYSICAL EXAMINATION: Patient is lying in the bed comfortably, no acute distress, awake alert and oriented.. HEENT: Normocephalic. Neck is supple. Pupils reactive. Nostrils clear. Oral cavity is moist. Neck reveals no JVD, carotid bruits, or thyromegaly. CHEST EXAMINATION: Trachea is central. Symmetrical expansion. Lung velez clear to auscultation and percussion. CARDIAC: Normal S1, S2 with no gallops. No murmurs ABDOMEN: Soft. Bowel sounds normal. No organomegaly. No abdominal bruits. Extremities: reveal no edema. No clubbing or cyanosis Neurologically awake, alert, oriented x3 with well-coordinated movements. No focal deficits noted Skin: No rash or skin lesions. Psychiatric: Coperative. Nonsuicidal Musculoskeletal: No joint swelling or deformity. Left knee surgical site bandaged. Results Labs: Abnormal Lab Results - Last 24 Hours (Table) 07/12/24 07/12/24 Range/Units 09:32 13:38 POC Glucose (mg/dL) 127 H 215 H (70-110) mg/dL Assessment and Plan Assessment: Status post left total knee arthroplasty postoperative day 0 Diabetes type 2 insulin-dependent with mild hyperglycemia COPD not in exacerbation Obesity with BMI 38.4 Osteoarthritis Hyperlipidemia Anxiety/depression GI and DVT prophylaxis Plan: Patient will be continued on pain management, bowel regimen and encourage incentive spirometry. Patient was started back on insulin glargine 27 units subcu daily along with insulin sliding scale. Continue with home medications. Follow-up CBC and BMP. Further recommendations based on the clinical course. Thank you kindly for your consult. Time with Patient: Greater than 30
[2024-07-12 16:43] LABS: Glucose,Whole Blood 184 mg/dL (70-110)
[2024-07-12] MEDS: INSULIN LISPRO (HumaLOG) 100 UNIT/ML 10 mL VL SQ SCH (17:01)
[2024-07-12] MEDS: ceFAZolin 2 GM in DEXTROSE 5% IN WATER 50 ML IVPB SCH (17:02)
[2024-07-12] MEDS: INSULIN GLARGINE (LANTUS) 100 UNIT/ML SYR SQ SCH (17:02)
[2024-07-12] MEDS: HYDROcodone/APAP 10-325MG 1 EACH TAB PO PRN (17:10)
[2024-07-12] MEDS: HYDROmorphone 2 MG/ML 1 ML SYRINGE IVP PRN (20:05)
[2024-07-12] MEDS: ASPIRIN 81 MG PO SCH (20:05)
[2024-07-12] MEDS: SENNOSIDES-DOCUSATE SODIUM 1 EACH TAB PO SCH (20:05)
[2024-07-12 20:27] LABS: Glucose,Whole Blood 236 mg/dL (70-110)
[2024-07-13 01:31] VITALS: PULSE 72
[2024-07-13 06:27] LABS: Glucose,Whole Blood 143 mg/dL (70-110)
[2024-07-13 07:27] VITALS: BP 103/62; RESP 20; TEMP 99.2
[2024-07-13] MEDS: ATORVASTATIN 20 MG TAB PO SCH (08:28)
[2024-07-13] MEDS: hydrOXYzine pamoate 25 MG CAP PO PRN (08:29)
[2024-07-13] MEDS: SYMBICORT 80-4.5 MCG INHALER INHALATION SCH (09:34)
[2024-07-13] MEDS: CITALOPRAM HYDROBROMIDE 20 MG TAB PO SCH (09:47)
[2024-07-13 10:05] LABS: Blood Urea Nitrogen 12.6 mg/dL (9.0-27.0); Calcium 8.6 mg/dL (8.7-10.3); Carbon Dioxide 22.6 mmol/L (21.6-31.8); Chloride 102 mmol/L (96-109); Glucose 163 mg/dL (70-110); Potassium 4.5 mmol/L (3.5-5.5); Sodium 137 mmol/L (135-145)
--- NOTE | 2024-07-13 10:13 | P.DS ---
Providers Expected date of discharge: 07/13/24 Attending physician: Julien Mendoza Consults: 07/12/24 12:06 Consult Physician Routine Consulting Provider: Leesa Smith Consult Reason/Comments: post op medical management Do you want consulting provider notified?: Yes 07/13/24 08:22 Consult Physician Routine Consulting Provider: Rhianna Bowden Consult Reason/Comments: Med management Do you want consulting provider notified?: Yes Primary care physician: Leesa Smith - Discharge Diagnosis(es) (1) Primary localized osteoarthritis of left knee Current Visit: Yes Status: Acute (2) Status post total left knee replacement Current Visit: Yes Status: Acute Hospital Course: This is a 54-year-old female who was last seen with complaint of continued left knee pain. The patient has a known history of degenerative arthritis of the left knee and presents to discuss surgical options. After discussion and consideration the patient elects to proceed with total left knee arthroplasty. The patient is seen preoperatively by her primary care physician and cleared for surgery. The patient is admitted to [facility] for total left knee arthroplasty. The procedures performed without complication or sequelae. He is doing well postoperatively. Vital signs are stable at discharge. Labs are stable at discharge. the patient is ambulating well with walker with minimal assistance. The patient is discharged to home on postop day # 1 pending medical clearance. Please see orders and refer to the med rec for accurate list of medications. Patient Condition at Discharge: Good Plan - Discharge Summary Discharge Rx Participant: No New Discharge Prescriptions: No Action Ibuprofen [Motrin] 800 mg PO DIRECTED PRN PRN Reason: Pain Atorvastatin [Lipitor] 20 mg PO DAILY Budesonide/Formoterol Fumarate [Budesonide-Formoterol 80-4.5] 2 puff INHALATION DAILY sitaGLIPtin [Januvia] 100 mg PO DAILY Glimepiride 1 mg PO DAILY Meloxicam 7.5 mg PO DAILY Insulin Glargine,Hum.rec.anlog [Elizabeth Gomez] 27 units SQ DAILY Aspirin [Adult Low Dose Aspirin EC] 81 mg PO DAILY ALPRAZolam [Xanax] 0.25 mg PO DAILY PRN PRN Reason: Anxiety traMADol HCL 50 mg PO DAILY PRN PRN Reason: Pain Citalopram Hydrobromide [Citalopram HBr] 20 mg PO DAILY Discharge Medication List Atorvastatin [Lipitor] 20 mg PO DAILY 01/25/24 [History] Budesonide/Formoterol Fumarate [Budesonide-Formoterol 80-4.5] 2 puff INHALATION DAILY 01/25/24 [History] Citalopram Hydrobromide [Citalopram HBr] 20 mg PO DAILY 01/25/24 [History] Glimepiride 1 mg PO DAILY 01/25/24 [History] Ibuprofen [Motrin] 800 mg PO DIRECTED PRN 01/25/24 [History] Meloxicam 7.5 mg PO DAILY 01/25/24 [History] sitaGLIPtin [Januvia] 100 mg PO DAILY 01/25/24 [History] traMADol HCL 50 mg PO DAILY PRN 01/25/24 [History] ALPRAZolam [Xanax] 0.25 mg PO DAILY PRN 04/19/24 [History] Aspirin [Adult Low Dose Aspirin EC] 81 mg PO DAILY 04/19/24 [History] Insulin Glargine,Hum.rec.anlog [[place]je[place] Solostar] 27 units SQ DAILY 04/19/24 [History] Follow up Appointment(s)/Referral(s): Julien Mendoza MD [Medical Doctor] - 2 Weeks Activity/Diet/Wound Care/Special Instructions: 1. Weight-bear as tolerated on your operative extremity unless instructed otherwise. Use a walker or other assistive device to ambulate. 2. Leave surgical dressing in place. If your dressing becomes saturated with blood, there is drainage, or the dressing becomes loose please contact the office. 3. It is okay to shower with your surgical dressing, but do not submerge in water (no hot tubs, bath's, swimming etc.) 4. Make sure to take her blood clot prevention medication as prescribed (aspirin, Eliquis, Xarelto, and Plavix are commonly prescribed medications for blood clot prevention) 5. While taking [place] or Percocet for pain make sure you're taking a stool softener (Colace) and drink lots of water. 6. Keep all follow-up appointments as scheduled. You will usually be seen in 1-2 weeks following surgery. 7. Please contact the office with any questions or concerns [phone] Discharge Disposition: HOME WITH HOME HEALTH SERVICES
[2024-07-13 10:20] LABS: HCT 34.4 % (37.2-46.3); HGB 10.4 g/dL (12.0-15.0); MCH 25.7 pg (27.0-32.0); MCHC 30.2 g/dL (32.0-37.0); MCV 85.1 FL (80.0-97.0); Mean Platelet Volume 12.1 FL (9.5-12.2); NRBC Per 100 WBC 0 X 10*3/uL (0.00-0.01); Platelet Count 275 X 10*3/uL (140-440); RBC 4.04 X 10*6/uL (4.10-5.20); RDW 14.6 % (11.5-14.5); WBC 23.98 X 10*3/uL (4.50-10.00)
[2024-07-13 11:01] LABS: Basophils # (A) 0.02 X 10*3/uL (0.00-0.10); Basophils % (A) 0.1 %; Eosinophils # (A) 0 X 10*3/uL (0.04-0.35); Eosinophils % (A) 0 %; Lymphocytes # (A) 1.43 X 10*3/uL (0.90-5.00); Monocytes # (A) 1.01 X 10*3/uL (0.20-1.00); Monocytes % (A) 4.2 %; Neutrophils # (A) 21.37 X 10*3/uL (1.80-7.70); Neutrophils % (A) 89.1 %
== END 2024-07-13 11:49 | disposition home health service (06) ==
LOC: OR 08:25 → 4SSUR 12:30 → OR 07-13 11:49
PROVIDERS: ATTEND Orthopaedic Surgery
DX: M17.12 Unilateral primary osteoarthritis, left knee (principal); E78.5 Hyperlipidemia, unspecified; E66.9 Obesity, unspecified; F32.A Depression, unspecified; F41.9 Anxiety disorder, unspecified; E11.9 Type 2 diabetes mellitus without complications; G89.18 Other acute postprocedural pain; J44.9 Chronic obstructive pulmonary disease, unspecified; Z68.38 Body mass index [BMI] 38.0-38.9, adult; Z79.1 Long term (current) use of non-steroidal anti-inflammatories (NSAID); Z79.4 Long term (current) use of insulin; Z79.84 Long term (current) use of oral hypoglycemic drugs; Z79.899 Other long term (current) drug therapy; Z87.891 Personal history of nicotine dependence; Z88.1 Allergy status to other antibiotic agents; Z88.2 Allergy status to sulfonamides; Z90.49 Acquired absence of other specified parts of digestive tract; Z98.890 Other specified postprocedural states; Z79.51 Long term (current) use of inhaled steroids
CPT/HCPCS: 0055T; 27447; 64447; 64473; 80048; 85025; 94640

== ENCOUNTER → 2024-07-18 | Outpatient (CLI) | payer OTHER ==
[2024-07-18 15:51] LABS: ALT 15 U/L (8-44); AST 18 U/L (13-35); Albumin 4.3 g/dL (3.8-4.9); Albumin/Globulin Ratio 1.59 Ratio (1.60-3.17); Alkaline Phosphatase 70 U/L (41-126); Blood Urea Nitrogen 13.3 mg/dL (9.0-27.0); Calcium 9.2 mg/dL (8.7-10.3); Carbon Dioxide 25.3 mmol/L (21.6-31.8); Chloride 100 mmol/L (96-109); Chol/HDL Ratio 3.08 Ratio; Globulin 2.7 g/dL (1.6-3.3); Glucose 147 mg/dL (70-110); LDL Cholesterol,Calculated 70.2 mg/dL (0.0-131.0); Potassium 4.6 mmol/L (3.5-5.5); Sodium 138 mmol/L (135-145); Total Bilirubin 0.5 mg/dL (0.3-1.2)
[2024-07-18 22:46] LABS: Microalbumin Creatinine Ratio <10 mg/g Cr (0-30)
== END | disposition home or self-care (01) ==
LOC: LABWHC1 08:56
PROVIDERS: ATTEND Internal Medicine Endocrinology, Diabetes & Metabolism
DX: E11.65 Type 2 diabetes mellitus with hyperglycemia (principal)
CPT/HCPCS: 36415; 80053; 80061; 82043; 82570; 83036; 84443

== ENCOUNTER 2024-08-12 04:50 | Emergency (ER) | payer OTHER ==
[2024-08-12 05:37] LABS: Basophils # (A) 0.09 10*3/uL (0.00-0.10); Basophils % (A) 0.7 %; Eosinophils # (A) 0.35 10*3/uL (0.04-0.35); Eosinophils % (A) 2.8 %; HCT 38.4 % (37.2-46.3); HGB 12.2 g/dL (12.0-15.0); Lymphocytes # (A) 2.34 10*3/uL (0.90-5.00); Lymphocytes % (A) 18.5 %; MCHC 31.8 g/dL (32.0-37.0); MCV 81.9 fL (80.0-97.0); Mean Platelet Volume 11.5 fL (9.5-12.2); Monocytes # (A) 0.84 10*3/uL (0.20-1.00); Monocytes % (A) 6.7 %; Neutrophils # (A) 8.96 10*3/uL (1.80-7.70); Platelet Count 262 10*3/uL (140-440); RBC 4.69 10*6/uL (4.10-5.20); RDW 14.9 % (11.5-14.5); WBC 12.62 10*3/uL (4.50-10.00)
[2024-08-12 05:52] LABS: ALT 16 U/L (4-34); AST 19 U/L (14-36); African American GFR (CKD) >90 (>60 ml/min/1.73 sqM); Albumin 4.1 g/dL (3.5-5.0); Alkaline Phosphatase 66 U/L (38-126); Anion Gap 11 mmol/L; Blood Urea Nitrogen 14 mg/dL (7-17); Calcium 9.4 mg/dL (8.4-10.2); Carbon Dioxide 23 mmol/L (22-30); Chloride 105 mmol/L (98-107); Glucose 134 mg/dL (74-99); Non-African American GFR(CKD) >90 (>60 ml/min/1.73 sqM); Potassium 3.8 mmol/L (3.5-5.1); Sodium 139 mmol/L (137-145); Total Bilirubin 0.5 mg/dL (0.2-1.3); Total Protein 6.6 g/dL (6.3-8.2)
[2024-08-12 05:55] LABS: INR 1.1 (<1.2)
[2024-08-12] MEDS: ONDANSETRON ODT 4 MG TAB PO STA (06:23)
[2024-08-12] MEDS: MECLIZINE 12.5 MG TAB PO STA (06:24)
--- NOTE | 2024-08-12 06:30 | ED ---
Dizziness HPI - General Chief Complaint: Dizziness Stated Complaint: Dizzy Time Seen by Provider: 08/12/24 06:17 Source: patient, RN notes reviewed Mode of arrival: wheelchair Limitations: no limitations - History of Present Illness Initial Comments: 54-year-old female presents emergency department chief complaint of dizziness. Patient states she awoke and states that she moved quickly and noticed that the room was spinning. She became very sweaty she denies any chest pain or chest discomfort. She has no complaints of shortness of breath. Patient states that she leans back or moves quickly is much worse she is better at rest she had intermittent nausea associate with dizziness no focal weakness no headache no head pressure. No visual disturbance. Patient states that she had a recent knee replacement, denies any leg pain or swelling no history of DVT. - Related Data Home Medications Medication Instructions Recorded Confirmed Atorvastatin [Lipitor] 20 mg PO DAILY 01/25/24 07/12/24 Budesonide/Formoterol Fumarate 2 puff INHALATION DAILY 01/25/24 07/12/24 [Budesonide-Formoterol 80-4.5] Citalopram Hydrobromide 20 mg PO DAILY 01/25/24 07/12/24 [Citalopram HBr] Glimepiride 1 mg PO DAILY 01/25/24 07/12/24 Ibuprofen [Motrin] 800 mg PO DIRECTED PRN 01/25/24 07/12/24 Meloxicam 7.5 mg PO DAILY 01/25/24 07/12/24 sitaGLIPtin [Januvia] 100 mg PO DAILY 01/25/24 07/12/24 traMADol HCL 50 mg PO DAILY PRN 01/25/24 07/12/24 ALPRAZolam [Xanax] 0.25 mg PO DAILY PRN 04/19/24 07/12/24 Aspirin [Adult Low Dose Aspirin EC] 81 mg PO DAILY 04/19/24 07/12/24 Insulin Glargine,Hum.rec.anlog 27 units SQ DAILY 04/19/24 07/12/24 [Elizabeth Gomez] Previous Rx's Medication Instructions Recorded Meclizine [Antivert] 25 mg PO TID PRN #15 tab 08/12/24 Allergies Allergy/AdvReac Type Severity Reaction Status Date / Time ciprofloxacin [From Cipro] Allergy Rash/Hives Verified 08/12/24 04:59 Sulfa (Sulfonamide Allergy Anaphylaxis Verified 08/12/24 04:59 Antibiotics) poinsettia Allergy bladder Uncoded 08/12/24 04:59 and kidney infection Review of Systems ROS Statement: Those systems with pertinent positive or pertinent negative responses have been documented in the HPI. ROS Other: All systems not noted in ROS Statement are negative. Past Medical History Past Medical History: Diabetes Mellitus, Hyperlipidemia, Osteoarthritis (OA) History of Any Multi-Drug Resistant Organisms: None Reported Past Surgical History: Appendectomy, Breast Surgery, Hernia Repair, Hysterectomy, Joint Replacement, Orthopedic Surgery, Tonsillectomy Additional Past Surgical History / Comment(s): ORIF RT ANKLE, RT TKA, COLONOSCO PY, BREAST LUMPECTOMY Past Anesthesia/Blood Transfusion Reactions: Postoperative Nausea & Vomiting (PONV) Past Psychological History: Anxiety, Depression Smoking Status: Former smoker Past Alcohol Use History: Rare Past Drug Use History: None Reported - Past Family History Mother Family Medical History: Cancer, Deep Vein Thrombosis (DVT) Sister(s) Family Medical History: Cancer General Exam Limitations: no limitations General appearance: alert, in no apparent distress Head exam: Present: atraumatic, normocephalic, normal inspection Eye exam: Present: normal appearance, PERRL, EOMI. Absent: scleral icterus, conjunctival injection, periorbital swelling ENT exam: Present: normal exam, normal oropharynx, mucous membranes moist Neck exam: Present: normal inspection, full ROM. Absent: tenderness, meningismus, lymphadenopathy Respiratory exam: Present: normal lung sounds bilaterally. Absent: respiratory distress, wheezes, rales, rhonchi, stridor Cardiovascular Exam: Present: regular rate, normal rhythm, normal heart sounds. Absent: systolic murmur, diastolic murmur, rubs, gallop, clicks GI/Abdominal exam: Present: soft, normal bowel sounds. Absent: distended, tenderness, guarding, rebound, rigid Neurological exam: Present: alert, oriented X3, CN II-XII intact, reflexes normal. Absent: motor sensory deficit Skin exam: Present: warm, dry, intact, normal color. Absent: rash Course Vital Signs 08/12/24 08/12/24 04:55 07:29 Temperature 98.2 F 97.8 F Pulse Rate 66 68 Respiratory 18 18 Rate Blood Pressure 124/83 108/70 O2 Sat by Pulse 98 98 Oximetry EKG Findings - EKG Comments: EKG Findings:: EKG performed at 5: 505 sinus rhythm with a rate of 67 TX 160 QRS 95 QT/QTc 405/420 - EKG Results: EKG: interpreted by TAYLOR Medical Decision Making - Medical Decision Making Was pt. sent in by a medical professional or institution (, PA, CHAIN TENDER, urgent care, hospital, or custodial...) When possible be specific @ -No Did you speak to anyone other than the patient for history (EMS, parent, family, police, friend...)? What history was obtained from this source @ -No Did you review nursing and triage notes (agree or disagree)? Why? @ -I reviewed and agree with nursing and triage notes Were old charts reviewed (outside hosp., previous admission, EMS record, old EKG, old radiological studies, urgent care reports/EKG's, custodial records)? Report findings @ -No old charts were reviewed Differential Diagnosis (chest pain, altered mental status, abdominal pain women, abdominal pain men, vaginal bleeding, weakness, fever, dyspnea, syncope, headach e, dizziness, GI bleed, back pain, seizure, CVA, palpatations, mental health, musculoskeletal)? @ -Differential Dizziness: Benign paroxysmal positional Vertigo, Meniere's disease, otitis media, acoustic neuroma, vertebrobasilar insufficiency, cerebellar stroke, encephalitis, hypovolemic, arrhythmia, coronary artery syndrome, anemia, this is not meant to be an all-inclusive list EKG interpreted by me (3pts min.). @ -As above X-rays interpreted by me (1pt min.). @ -None done CT interpreted by me (1pt min.). @ -None done U/S interpreted by me (1pt. min.). @ -None done What testing was considered but not performed or refused? (CT, X-rays, U/S, labs)? Why? @ -None What meds were considered but not given or refused? Why? @ -None Did you discuss the management of the patient with other professionals (professionals i.e. , PA, CHAIN TENDER, lab, RT, psych nurse, social insurance administrator, television production assistant, teacher, admitting officer, rn case management)? Give summary @ -No Was smoking cessation discussed for >3mins.? @ -No Was critical care preformed (if so, how long)? @ -No Were there social determinants of health that impacted care today? How? (Homelessness, low income, unemployed, alcoholism, drug addiction, transportation, low edu. Level, literacy, decrease access to med. care, intermediate, rehab)? @ -No Was there de-escalation of care discussed even if they declined (Discuss DNR or withdrawal of care, Hospice)? DNR status @ -No What co-morbidities impacted this encounter? (DM, HTN, Smoking, COPD, CAD, Cancer, CVA, ARF, Chemo, Hep., AIDS, mental health diagnosis, sleep apnea, morbid obesity)? @ -None Was patient admitted / discharged? Hospital course, mention meds given and route, prescriptions, significant lab abnormalities, going to OR and other pertinent info. @ -Discharge patient feels greatly improved after Zofran, Antivert. She has neurological deficits. This is positional vertigo type symptoms. Patient will be discharged in stable condition she was able to ambulate without dizziness or acute symptoms. Patient agrees with plan for discharge and close follow-up. Undiagnosed new problem with uncertain prognosis? @ -No Drug Therapy requiring intensive monitoring for toxicity (Heparin, Nitro, Insulin, Cardizem)? @ -No Were any procedures done? @ -No Diagnosis/symptom? @ -[Vertigo Acute, or Chronic, or Acute on Chronic? @ -Acute Uncomplicated (without systemic symptoms) or Complicated (systemic symptoms)? @ -Complicated Side effects of treatment? @ -No Exacerbation, Progression, or Severe Exacerbation? @ -No Poses a threat to life or bodily function? How? (Chest pain, [place], [place], pneumonia, PE, COPD, DKA, ARF, appy, cholecystitis, CVA, Diverticulitis, Homicidal, Suicidal, threat to staff... and all critical care pts) @ -No - Lab Data Result diagrams: 08/12/24 05:05 08/12/24 05:05 Lab Results 08/12/24 08/12/24 08/12/24 Range/Units 05:05 05:05 05:05 WBC 12.62 H (4.50-10.00) 10*3/uL RBC 4.69 (4.10-5.20) 10*6/uL Hgb 12.2 (12.0-15.0) g/dL Hct 38.4 (37.2-46.3) % MCV 81.9 (80.0-97.0) fL MCH 26.0 L (27.0-32.0) pg MCHC 31.8 L (32.0-37.0) g/dL Plt Count 262 (140-440) 10*3/uL MPV 11.5 (9.5-12.2) fL Immature Gran % (Auto) 0.3 % Neutrophils % 71.0 % Lymphocytes % 18.5 % Monocytes % 6.7 % Eosinophils % 2.8 % Basophils % 0.7 % Immature Gran # 0.04 (0.00-0.04) 10*3/uL Neutrophils # 8.96 H (1.80-7.70) 10*3/uL Lymphocytes # 2.34 (0.90-5.00) 10*3/uL Monocytes # 0.84 (0.20-1.00) 10*3/uL Eosinophils # 0.35 (0.04-0.35) 10*3/uL Basophils # 0.09 (0.00-0.10) 10*3/uL PT 12.0 (10.0-12.5) sec INR 1.1 (<1.2) Sodium 139 (137-145) mmol/L Potassium 3.8 (3.5-5.1) mmol/L Chloride 105 (98-107) mmol/L Carbon Dioxide 23 (22-30) mmol/L Anion Gap 11 mmol/L BUN 14 (7-17) mg/dL Creatinine 0.58 (0.52-1.04) mg/dL Est GFR (CKD-EPI)AfAm >90 (>60 ml/min/1.73 sqM) Est GFR (CKD-EPI)NonAf >90 (>60 ml/min/1.73 sqM) Glucose 134 H (74-99) mg/dL Calcium 9.4 (8.4-10.2) mg/dL Total Bilirubin 0.5 (0.2-1.3) mg/dL AST 19 (14-36) U/L ALT 16 (4-34) U/L Alkaline Phosphatase 66 (38-126) U/L Troponin I (0.000-0.034) ng/mL Total Protein 6.6 (6.3-8.2) g/dL Albumin 4.1 (3.5-5.0) g/dL 08/12/24 Range/Units 05:05 WBC (4.50-10.00) 10*3/uL RBC (4.10-5.20) 10*6/uL Hgb (12.0-15.0) g/dL Hct (37.2-46.3) % MCV (80.0-97.0) fL MCH (27.0-32.0) pg MCHC (32.0-37.0) g/dL Plt Count (140-440) 10*3/uL MPV (9.5-12.2) fL Immature Gran % (Auto) % Neutrophils % % Lymphocytes % % Monocytes % % Eosinophils % % Basophils % % Immature Gran # (0.00-0.04) 10*3/uL Neutrophils # (1.80-7.70) 10*3/uL Lymphocytes # (0.90-5.00) 10*3/uL Monocytes # (0.20-1.00) 10*3/uL Eosinophils # (0.04-0.35) 10*3/uL Basophils # (0.00-0.10) 10*3/uL PT (10.0-12.5) sec INR (<1.2) Sodium (137-145) mmol/L Potassium (3.5-5.1) mmol/L Chloride (98-107) mmol/L Carbon Dioxide (22-30) mmol/L Anion Gap mmol/L BUN (7-17) mg/dL Creatinine (0.52-1.04) mg/dL Est GFR (CKD-EPI)AfAm (>60 ml/min/1.73 sqM) Est GFR (CKD-EPI)NonAf (>60 ml/min/1.73 sqM) Glucose (74-99) mg/dL Calcium (8.4-10.2) mg/dL Total Bilirubin (0.2-1.3) mg/dL AST (14-36) U/L ALT (4-34) U/L Alkaline Phosphatase (38-126) U/L Troponin I <0.012 (0.000-0.034) ng/mL Total Protein (6.3-8.2) g/dL Albumin (3.5-5.0) g/dL Disposition Clinical Impression: Vertigo Disposition: HOME SELF-CARE Condition: Stable Instructions (If sedation given, give patient instructions): Dizziness (ED) Additional Instructions: Please return to the Emergency Department if symptoms worsen or any other concerns. Prescriptions: Meclizine [Antivert] 25 mg PO TID PRN #15 tab PRN Reason: Vertigo Is patient prescribed a controlled substance at d/c from ED?: No Referrals: Leesa Smith MD [Primary Care Provider] - 1-2 days Time of Disposition: 07:32
[2024-08-12 07:31] VITALS: TEMP 97.8
[2024-08-12] MEDS: SODIUM CHLORIDE 0.9% 500 ML 500 ML IV ONE (07:57)
[2024-08-12] MEDS: SODIUM CHLORIDE 0.9% 1,000 ML IV ONE (07:57)
[2024-08-12] MEDS: METOCLOPRAMIDE 5 MG/ML 2 ML VIAL IVP STA (07:58)
[2024-08-12] MEDS: ONDANSETRON 4 MG/2 ML VIAL IVP STA (08:40)
[2024-08-12 10:14] VITALS: BP 125/73; PULSE 73; RESP 16
== END 2024-08-12 10:34 | disposition home or self-care (01) ==
LOC: EC 04:50
DX: R42 Dizziness and giddiness (principal); Z88.2 Allergy status to sulfonamides; Z88.1 Allergy status to other antibiotic agents
CPT/HCPCS: 36415; 93005; 80053; 84484; 85025; 85610; 99284; 96374; 96375; 96361 ×2; J2765; J2405

== ENCOUNTER → 2024-10-14 | Outpatient (CLI) | payer OTHER ==
[2024-10-14 11:24] LABS: ALT 11 U/L (8-44); AST 16 U/L (13-35); Albumin 4.4 g/dL (3.8-4.9); Albumin/Globulin Ratio 1.91 Ratio (1.60-3.17); Alkaline Phosphatase 64 U/L (41-126); Anion Gap 12.50 mmol/L (4.00-12.00); BUN/Creat Ratio 24.33 Ratio (12.00-20.00); Blood Urea Nitrogen 14.6 mg/dL (9.0-27.0); Calcium 9.2 mg/dL (8.7-10.3); Carbon Dioxide 25.5 mmol/L (21.6-31.8); Chloride 101 mmol/L (96-109); Cholesterol 166.00 mg/dL (0.00-200.00); Globulin 2.3 g/dL (1.6-3.3); Glucose 140 mg/dL (70-110); HDL Cholesterol 54.40 mg/dL (40.00-60.00); LDL Cholesterol,Calculated 70.0 mg/dL (0.0-131.0); Potassium 4.2 mmol/L (3.5-5.5); Sodium 139 mmol/L (135-145); Total Protein 6.7 g/dL (6.2-8.2); Triglycerides 208.00 mg/dL (0.00-149.00); VLDL Calculation 41.60 mg/dL (5.00-40.00)
== END | disposition home or self-care (01) ==
LOC: LABWHC1 08:13
PROVIDERS: ATTEND Internal Medicine Endocrinology, Diabetes & Metabolism
DX: E11.65 Type 2 diabetes mellitus with hyperglycemia (principal)
CPT/HCPCS: 36415; 80053; 80061; 82043; 82570; 83036; 84443

== ENCOUNTER → 2024-10-14 | Outpatient (CLI) | payer OTHER ==
--- NOTE | 2024-11-04 23:08 | P.PCN ---
Date of Procedure: 10/14/24 Operative Findings: Home sleep study report Data was downloaded from the home sleep study unit. There was only a total of 3 minutes of recording. Is a failed study. Recommend repeating the home sleep study.
== END ==
LOC: 3 N SLEEP 13:41
PROVIDERS: ATTEND Internal Medicine Critical Care Medicine